=== PATIENT | male | born 1950 | race Caucasian/White ===

== ENCOUNTER 2019-04-30 00:46 | Emergency (ER) | payer OTHER, MEDICARE, MEDICAID, SELFPAY ==
[2019-04-30 00:51] VITALS: BP 173/100; PULSE 76; RESP 18; TEMP 37.1; O2SAT 95; BMI 21.9
--- NOTE | 2019-04-30 00:53 | ED_ITS ---
Entered by Lisa Garcias, acting as scribe for BashirCharlotte HPI - Abdominal Pain General: Chief Complaint: Abdominal Pain Stated Complaint: abd pain Time Seen by Provider: 04/30/19 00:53 Source: patient Mode of arrival: ambulatory Limitations: no limitations History of Present Illness: HPI narrative: 68 yo m came to the er for abd pain. Onset was last night. Pt states that he is having rt flank pain, pt said that he is not having any hematuria at this time. Pt states that this has happened before. d MD elicited complaint: abdominal pain Pertinent past history: none Onset (ago): day(s) (last night) Pain Consistency: constant Location: R flank Severity: mild Quality: sharp Radiation: none Migration to: no migration Exacerbating factors: nothing Relieving factors: nothing Associated Symptoms: Reports no associated symptoms Review of Systems General: Reports: other (negative unless marked) [facility] ED PFSH: Social History Smoking and tobacco status: current every day smoker Course Vital Signs: Vital signs: Vital Signs Temperature 98.8 F 04/30/19 00:51 Pulse Rate 70 04/30/19 03:07 Respiratory Rate 16 04/30/19 03:07 Blood Pressure 163/95 04/30/19 03:07 Pulse Oximetry 94 04/30/19 03:07 MDM - Abdominal Pain MDM Narrative: Medical decision making narrative: Edvin is a very nice 68-year-old male who comes in with right flank pain consistent with previous kidney stones. Renal CT shows a 2.1 x 1 6 mm stone in the right proximal ureter with mild obstruction. There is no sign of infection in his urine. He is not vomiting and is able to tolerate oral medications. I will go and discharge him home to follow-up with Dr. Naqvi he understands return for fever, uncontrolled pain or for any other symptoms. The patient will follow up with [facility] for definitive management. Lab Data: Attestation: I reviewed the patient's lab results. Labs: Lab Results 04/30/19 04/30/19 04/30/19 Range/Units 00:57 00:57 02:30 WBC 11.5 H (4.0-10.0) 10^3/ uL RBC 5.42 H (4.1-5.3) 10^6/u L Hgb 16.7 H (11.7-16.6) g/dL Hct 50.3 (42.0-52.0) % MCV 92.8 (80-94) fL MCH 30.8 (28.0-34.0) pg MCHC 33.2 (30.0-36.0) g/dL RDW 13.9 (12.1-15.1) % Plt Count 179 (130-400) 10^3/c mm MPV 11.2 H (7.4-10.4) fL Neut % (Auto) 83.4 % Lymph % (Auto) 11.5 % [place] % (Auto) 4.2 % Eos % (Auto) 0.3 % Baso % (Auto) 0.3 % Neut # (Auto) 9.6 H (1.8-7.7) 10^3/u L Lymph # (Auto) 1.3 (0.8-4.8) 10^3/u L [place] # (Auto) 0.5 (0.2-0.9) 10^3/u L Eos # (Auto) 0.0 (0.0-0.8) 10^3/u L Baso # (Auto) 0.0 (0.0-0.1) 10^3/u L Nucleated RBC % (a uto) 0 % Nucleated RBCs # 0.0 /100WBC Sodium 140 (136-145) mmol/L Potassium 3.9 (3.5-5.1) mmol/L Chloride 100 (98-107) mmol/L Carbon Dioxide 23 (22-29) mmol/L Anion Gap 20.9 H (5-19) BUN 18 (8-23) mg/dL Creatinine 1.2 (0.7-1.2) mg/dL GFR Calculation 60.6 L (90-130) mL/min Glucose 159 H (65-115) mg/dL Calcium 9.7 (8.5-10.5) mg/dL Magnesium 2.1 (1.7-2.3) mg/dL Total Bilirubin 1.0 (0.15-1.2) mg/dL AST 17 (0-40) U/L ALT 12 (0-41) U/L Alkaline Phosphata se 88 (40-130) IU/L Total Protein 7.6 (6.6-8.7) g/dL Albumin 4.6 (3.5-5.2) g/dL Globulin 3.0 (1.3-4.6) g/dL Lipase 155 H (13-60) U/L Urine Color Yellow (Yellow) Urine Appearance Hazy A (CLEAR) Urine pH 5 (5-7) Ur Specific Gravit y 1.030 (1.005-1.030) Urine Protein Neg (Negative) Urine Glucose (UA) Norm (Normal) Urine Ketones 1+ H (Negative) Urine Blood 3+ H (Negative) Urine Nitrate Negative (Negative) Urine Bilirubin 1+ H (NEGATIVE) Urine Urobilinogen 1 H (Negative) mg/dL Ur Leukocyte Henny ase Negative (Negative) Urine RBC 5-10 H (0-2) /hpf Urine WBC None (0-5) /hpf Ur Squamous Epith Cells 0-4 H (0-5) Calcium Oxalate Cr ystal 10-15 H /hpf Urine Bacteria 1+ H (NONE) Urine Mucus 3+ Imaging Data ^: CT Abd/Pel: Radiologist's impression: [place] [address] CT Scan Report Signed Patient: Edvin Echeverria Unit #: [id number] : 1950 Age/Sex: 68 / M ADM Date: 04/30/19 Loc: ER Room/Bed: Attending Dr: Ordering Provider/Ordering MD: Charlotte Camejo DO Date of Service: 04/30/19 Procedure(s): CT kidney stone 29685 Accession Number(s): [id number] Report Number: [id number] PROCEDURE INFORMATION: Exam: CT Abdomen And Pelvis Without Contrast Exam date and time: 04/30/2019 12:57 AM Age: 68 years old Clinical indication: Abdominal pain; Flank; Right; Patient HX: HX prior renal stones; Additional info: Flank/abdominal pain TECHNIQUE: Imaging protocol: Computed tomography of the abdomen and pelvis without contrast. Total DLP: 597.1 mGy-cm Radiation optimization: All CT scans at this facility use at least one of these dose optimization techniques: automated exposure control; mA and/or kV adjustment per patient size (includes targeted exams where dose is matched to clinical indication); or iterative reconstruction. COMPARISON: No relevant prior studies available. FINDINGS: Lungs: Minimal stranding in the left lung base. Liver: Unremarkable liver. Gallbladder and bile ducts: No calcified stones. No ductal dilation. Pancreas: No obvious pancreatic disease. Spleen: No splenomegaly. Adrenals: No mass. Kidneys and ureters: Very small stone in the right kidney. Several homogeneous water density masses in the kidneys, the largest measuring 4.5 cm in greatest diameter arising from the anterior lower left kidney; minimal calcification in the margin or dependent lumen of some of these masses. Several high density small masses also evident within the kidneys. Mild right hydronephrosis, stranding in the right perirenal fat and mild to moderate proximal right hydroureter; termination of the right ureteral dilatation in the area of the 2.1 x 1.6 mm proximal right ureteral stone. No left hydronephrosis. Stomach and bowel: Moderate sigmoid and mild to moderate descending colonic diverticulosis. Several transverse and right colonic diverticula, also. No obstruction. Appendix: Normal appendix. Intraperitoneal space: No free air. Vasculature: Atherosclerosis. Mild ectasia of the distal abdominal aorta and the right common iliac artery. No focal aortic aneurysm. Lymph nodes: No apparent enlarged nodes. Bladder: Unremarkable as visualized. Reproductive: Mild prostatic prominence. Bones/joints: Degeneration of several discs. No acute fracture. Soft tissues: Slight direct and indirect left inguinal hernias containing fat. Developing right inguinal hernia. CT/CT kidney stone [id number] IMPRESSION: 1. 2.1 x 1.6 mm stone in the proximal right ureter causing mild obstruction. Very small right renal stone. Multiple renal masses suggestive of low density and high density cysts; minimal marginal or dependent luminal calcification in some of the low-density masses. 2. Mild ectasia of the distal abdominal aorta and the right common iliac artery. Colonic diverticulosis and other findings detailed above. Radiation Dose CTDIVOL = (mGy): DLP = 597.1 (mGy-cm) Dictated By: Catalina Ho MD Signed By: Catalina Ho MD Signed Date/Time: 04/30/19248 DD/ 7 Discharge Plan Discharge Patient Disposition: Home, Self-Care Clinical Impression: Right ureteral calculus Condition: Stable Prescriptions: New Macrobid 100 mg capsule 100 mg PO BID 7 Days Qty: 14 RF: 0 [place] 5-325 mg tablet 1 tab PO Q6H PRN (Reason: pain) 5 Days Qty: 20 RF: 0 Zofran 4 mg tablet 4 mg PO Q6H PRN (Reason: nausea and vomiting) Qty: 20 RF: 0 Discharge Orders: Discharge Order (Routine); Ordered 04/30/19 Ordered By: Charlotte Camejo Referrals: Adrien Naqvi MD [Physician] - 1-3 days Krunal Painter, [Primary Care Provider] - Discharge Diet: Advance as tolerated Discharge Activity: Increase activity as tolerated Patient Instructions: Kidney Stones (ED), Renal Colic (ED), How to Strain Your Urine (ED) Activity Restrictions/Additional Instructions: Please return to the ER immediately for any of the signs or symptoms listed on your discharge instruction sheets, worsening/changing of your symptoms, you are not getting better as quickly as expected, or for ANY other cause or concerns. Discharge Date/Time: 04/30/19 03:08 Coding Level of Care Code ED Political Geographer for g Fwd The documentation recorded by the Dieter choudhury Stephanie Lyn, accurately reflects the service I personally performed and the decisions made by Bashir ivory Eli N Apr 30, 2019 00:46
--- NOTE | 2019-04-30 00:56 | CTR_ITS ---
PROCEDURE INFORMATION: Exam: CT Abdomen And Pelvis Without Contrast Exam date and time: 04/30/2019 12:57 AM Age: 68 years old Clinical indication: Abdominal pain; Flank; Right; Patient HX: HX prior renal stones; Additional info: Flank/abdominal pain TECHNIQUE: Imaging protocol: Computed tomography of the abdomen and pelvis without contrast. Total DLP: 597.1 mGy-cm Radiation optimization: All CT scans at this facility use at least one of these dose optimization techniques: automated exposure control; mA and/or kV adjustment per patient size (includes targeted exams where dose is matched to clinical indication); or iterative reconstruction. COMPARISON: No relevant prior studies available. FINDINGS: Lungs: Minimal stranding in the left lung base. Liver: Unremarkable liver. Gallbladder and bile ducts: No calcified stones. No ductal dilation. Pancreas: No obvious pancreatic disease. Spleen: No splenomegaly. Adrenals: No mass. Kidneys and ureters: Very small stone in the right kidney. Several homogeneous water density masses in the kidneys, the largest measuring 4.5 cm in greatest diameter arising from the anterior lower left kidney; minimal calcification in the margin or dependent lumen of some of these masses. Several high density small masses also evident within the kidneys. Mild right hydronephrosis, stranding in the right perirenal fat and mild to moderate proximal right hydroureter; termination of the right ureteral dilatation in the area of the 2.1 x 1.6 mm proximal right ureteral stone. No left hydronephrosis. Stomach and bowel: Moderate sigmoid and mild to moderate descending colonic diverticulosis. Several transverse and right colonic diverticula, also. No obstruction. Appendix: Normal appendix. Intraperitoneal space: No free air. Vasculature: Atherosclerosis. Mild ectasia of the distal abdominal aorta and the right common iliac artery. No focal aortic aneurysm. Lymph nodes: No apparent enlarged nodes. Bladder: Unremarkable as visualized. Reproductive: Mild prostatic prominence. Bones/joints: Degeneration of several discs. No acute fracture. Soft tissues: Slight direct and indirect left inguinal hernias containing fat. Developing right inguinal hernia. CT/CT kidney stone [id number] IMPRESSION: 1. 2.1 x 1.6 mm stone in the proximal right ureter causing mild obstruction. Very small right renal stone. Multiple renal masses suggestive of low density and high density cysts; minimal marginal or dependent luminal calcification in some of the low-density masses. 2. Mild ectasia of the distal abdominal aorta and the right common iliac artery. Colonic diverticulosis and other findings detailed above. Radiation Dose CTDIVOL = (mGy): DLP = 597.1 (mGy-cm)
[2019-04-30 01:04] LABS: Basophils % 0.3 %; Eosinophils % 0.3 %; Hematocrit 50.3 % (42.0-52.0); Hemoglobin 16.7 g/dL (11.7-16.6); Lymphocytes # 1.3 10^3/uL (0.8-4.8); Lymphocytes % 11.5 %; Mean Corpuscular HGB Conc 33.2 g/dL (30.0-36.0); Mean Corpuscular Hemoglobin 30.8 pg (28.0-34.0); Mean Corpuscular Volume 92.8 fL (80-94); Mean Platelet Volume 11.2 fL (7.4-10.4); Monocytes # 0.5 10^3/uL (0.2-0.9); Monocytes % 4.2 %; Neutrophils # 9.6 10^3/uL (1.8-7.7); Neutrophils % 83.4 %; Nucleated Red Blood Cells % 0 %; Platelet Count 179 10^3/cmm (130-400); Red Blood Count 5.42 10^6/uL (4.1-5.3); Red Cell Distribution Width 13.9 % (12.1-15.1); White Blood Count 11.5 10^3/uL (4.0-10.0)
[2019-04-30 01:06] VITALS: RESP 16
[2019-04-30] MEDS: morphine 4 mg/mL SDV 1 mL IVP (01:06)
[2019-04-30] MEDS: ondansetron 2 mg/ML SDV 2 mL 4 MG IVP (01:06)
[2019-04-30] MEDS: sodium chloride 0.9% 1,000 ML 100 ML IV (01:08)
[2019-04-30] MEDS: sodium chloride 0.9% 1,000 ML 999 ML IV (01:09)
[2019-04-30 01:23] LABS: Alanine Aminotransferase 12 U/L (0-41); Albumin Level 4.6 g/dL (3.5-5.2); Alkaline Phosphatase 88 IU/L (40-130); Anion Gap 20.9 (5-19); Aspartate Amino Transferase 17 U/L (0-40); Blood Urea Nitrogen 18 mg/dL (8-23); Calcium 9.7 mg/dL (8.5-10.5); Carbon Dioxide 23 mmol/L (22-29); Chloride 100 mmol/L (98-107); Glomerular Filtration Rate 60.6 mL/min (90-130); Glucose 159 mg/dL (65-115); Lipase 155 U/L (13-60); Magnesium 2.1 mg/dL (1.7-2.3); Potassium 3.9 mmol/L (3.5-5.1); Sodium 140 mmol/L (136-145); Total Protein 7.6 g/dL (6.6-8.7)
[2019-04-30 02:43] LABS: Blood Urine 3+ (Negative); Glucose Urine UA Norm (Normal); Ketones Urine 1+ (Negative); Protein Urine Neg (Negative); Urine Appearance Hazy (CLEAR); Urine Color Yellow (Yellow); pH Urine 5 (5-7)
[2019-04-30 02:44] LABS: Bilirubin Urine 1+ (NEGATIVE); Leukocyte Esterase Urine Negative (Negative); Nitrate Urine Negative (Negative); Urobilinogen Urine 1 mg/dL (Negative)
[2019-04-30 02:52] LABS: Bacteria Urine 1+; Mucus Urine 3+; Squamous Epithelial Cell Urine 0-4 (0-5)
[2019-04-30 02:53] LABS: Add Urine Culture? No
[2019-04-30] MEDS: ketorolac 30 mg/mL INJ 10 MG IVP (03:03)
[2019-04-30] MEDS: nitrofurantoin SR (BID) 100 mg Capsule PO (03:03)
[2019-04-30 03:07] VITALS: BP 163/95; PULSE 70; RESP 16; O2SAT 94
--- NOTE | 2019-05-02 08:27 | DCPLANNER ---
senior safety support manager had message to schedule a follow up appointment for patient with Dr. Naqvi. senior safety support manager called the office of Dr. Naqvi, spoke with Guerline, gave clinic patients information. senior safety support manager was told that patients information would be printed and given to Jessica for review. Clinic will call patient with appointment information, vocational case manager will call for appointment information. Patient has [employer] [facility], vocational case manager called June with [facility] and informed her that patient is to follow up with Dr. Naqvi.
--- NOTE | 2019-05-06 13:54 | DCPLANNER ---
Patient had an appointment scheduled for 05.05.[address] Naqvi. Patient did attend the appointment.
== END 2019-04-30 03:08 | disposition home or self-care (01) ==
PROVIDERS: Emergency Provider Emergency Medicine; Family Provider Emergency Medicine Emergency Medical Services; PCP Emergency Medicine Emergency Medical Services
DX: N13.2 Hydronephrosis with renal and ureteral calculous obstruction (principal); F17.200 Nicotine dependence, unspecified, uncomplicated
CPT/HCPCS: 36415; 74176; 80053; 81001; 83690; 83735; 85025; 96360; 96361; 96374; 96375; 96376; 99283; A9270; J1885; J2270; J2405; J7030

== ENCOUNTER 2019-05-05 06:39 | Outpatient (CLI) | payer MEDICARE, MEDICAID, SELFPAY ==
--- NOTE | 2019-05-05 07:00 | XR_ITS ---
WS: [id number] XR KUB [id number] REASON FOR EXAM: RIGHT URETERAL CALCULUS FINDINGS: A calcified density is seen near the entrance into the right side of the bladder consistent with a stone. There are no definite calcifications in the region of the kidneys or proximal ureter. XR/XR KUB [id number] IMPRESSION: Suspect stone in the distal right ureter.
== END 2019-05-05 06:40 | disposition home or self-care (01) ==
PROVIDERS: Family Provider Emergency Medicine Emergency Medical Services; PCP Emergency Medicine Emergency Medical Services; Visit Provider Urology
DX: N20.1 Calculus of ureter (principal)
CPT/HCPCS: 74018; 81001

== ENCOUNTER 2021-10-04 08:24 | Inpatient (IN) | payer OTHER, MEDICARE, SELFPAY ==
[2021-10-04] VITALS (48 sets, daily range): BP systolic 112–154; BP diastolic 66–85; PULSE 86–99; RESP 12–41; TEMP 36.6–37.1; O2SAT 90–96; BMI 20.1
--- NOTE | 2021-10-04 08:48 | XRR_ITS ---
PROCEDURE INFORMATION: Exam: XR Chest Exam date and time: 10/04/2021 9:11 AM Age: 71 years old Clinical indication: Shortness of breath; Additional info: SOB, hypoxia TECHNIQUE: Imaging protocol: Radiologic exam of the chest. Views: 1 view. COMPARISON: CR XR KUB [id number] 05/05/2019 6:53 AM FINDINGS: Lungs: Trace ground-glass densities in the left lung base. Questionable nodularity in the right peripheral lung base. Pleural spaces: No pneumothorax. No pleural effusion. Heart/Mediastinum: The cardiomediastinal silhouette is within normal limits. Bones/joints: Fracture of the posterior left 7th rib. XR/XR chest 1V portable [id number] IMPRESSION: 1. Fracture of the posterior left 7th rib. 2. Trace ground-glass densities in the left lung base, may be consistent with mild pneumonia. 3. Questionable nodularity in the right peripheral lung base.
--- NOTE | 2021-10-04 08:49 | W.ED.SOB ---
Documented by User: OSCAR Hernandez 10/04/21 12:41 HPI - SOB/Dyspnea General: Chief Complaint: Shortness of Breath/Dyspnea Stated Complaint: sob Time Seen by Provider: 10/04/21 08:34 Source: patient Mode of arrival: ambulatory Limitations: no limitations History of Present Illness: HPI Narrative: Patient is a 71-year-old male who presents to ED today with a complaint of shortness of breath over the past 3 to 4 days. Patient states he is an every day smoker with probable undiagnosed COPD. He does use an albuterol inhaler as needed. Patient states that his shortness of breath seems to be worse with exertion and lying flat. He states he has had to sleep upright for the past several nights. He does have a productive cough. No fevers or chills. He does not complain of any chest pain. No lower leg swelling or calf pain. Of note he does report being a around a COVID-positive individual last week. Patient is unvaccinated for COVID. Patient was satting 85% on room air upon arrival to the ED. During my initial visit he is on 3L and satting at roughy 91-92%. MD elicited complaint: shortness of breath Onset (ago): day(s) Timing: constant Exacerbating factors: lying flat and exertion Relieving factors: upright position Associated symptoms: Reports abdominal pain, chest congestion and orthopnea; Deny chest pain, dizziness, extremity pain, fever(s), hemoptysis, lightheadedness, nausea, palpitations, syncope or vomiting Treatment prior to arrival: none Related Data: Home oxygen amount: none Review of Systems Const: Denies: fever(s), chills, body aches, fatigue or malaise Eyes: Denies: change in vision, blurry vision or photophobia ENMT: Denies: throat pain, odynophagia, nasal discharge, nasal congestion, post nasal drip or sinus pain Card: Reports: dyspnea on exertion and orthopnea; Denies: chest pain, palpitations, irregular heart rhythm, edema, swelling of feet/ankles, lightheadedness, syncope, pre-syncope, leg pain with exertion or acrocyanosis Resp: Reports: dyspnea, productive cough and chest congestion; Denies: wheezing, pain on inspiration or hemoptysis GI: Reports: abdominal pain; Denies: nausea, vomiting, heartburn or diarrhea : Denies: flank pain, difficulty urinating, dysuria or hematuria Musc: Denies: neck pain, back pain, extremity pain or joint pain Skin/Breast: Denies: rash Neuro: Denies: headache(s), numbness in extremities, weakness in extremities, sensory changes or dizziness [facility] ED PFSH: Medical History (Updated 10/04/21 @ 12:48 by Artem Yeung MD) Calcium renal calculus COPD (chronic obstructive pulmonary disease) Hyperlipidemia Ureterolithiasis Surgical History Status post laser lithotripsy of ureteral calculus Family History Father Cancer Brother CAD (coronary artery disease) Social History Smoking and tobacco status: current every day smoker Alcohol intake: never Adopted: No Caregiver/support person: No Lives independently: Yes Marital status: Current occupational status: retired History of recent travel: No Current gender identity: Male Physical Exam Const: COMMON NORMALS: no acute distress, patient oriented x3, no limitations and alert GENERAL APPEARANCE: cooperative ORIENTATION/CONSCIOUSNESS: Yes awake, Yes oriented to person, Yes oriented to place and Yes oriented to time HENMT: COMMON NORMALS: normocephalic and atraumatic HEAD & SCALP: normal to inspection, normocephalic and atraumatic Eye: GENERAL EYE: appearance normal, both eyes and all related structures Neck/C-Spine: COMMON NORMALS: full ROM, no lymphadenopathy, supple, no meningeal signs and no JVD Chest: COMMONS NORMALS: normal inspection of the chest and normal palpation of entire chest wall Resp: EFFORT & INSPECTION: Yes symmetric chest movement, No tachypneic and Yes respiratory distress (acute respiratory distress with hypoxia) AUSCULTATION: diminished lung sounds Cardio: COMMON NORMALS: no JVD and regular rate RATE: regular rate RHYTHM: abnormal rhythm regularly irregular GI: COMMON NORMALS: Normal to inspection, nondistended, normoactive bowel sounds present, Soft to palpation, No hepatosplenomegaly present and no masses INSPECTION: Yes normal to inspection AUSCULTATION: Yes normoactive bowel sounds PALPATION: Yes Soft to palpation, Yes Tenderness to palpation present (GI) (slight tenderness throughout abdomen-non surgical), No Guarding due to palpation present (GI), No Rigid due to palpation and Yes No hepatosplenomegaly present : COMMON NORMALS: Yes no CVA tenderness BLADDER/KIDNEY EXAM: Yes no CVA tenderness Back/Pelvis: COMMON NORMALS: no CVA tenderness, thoracic and lumbar spine normal to inspection, no thoracic nor lumbar tenderness and thoraco-lumbar ROM normal Extremity: COMMON NORMALS: normal to inspection GENERAL: Yes normal exam except as noted Neuro: GHISLAINE COMA SCALE: document GCS findings [place] coma scale eye opening: Spontaneous [place] coma scale verbal response: Orientated [place] coma scale motor response: Obey commands [place] coma scale total score: 15 COMMON NORMALS: patient oriented x3, moves all extremities, no focal motor deficits, no sensory deficits noted and gait normal SENSORIUM/ORIENTATION: Yes alert, Yes oriented to person, Yes oriented to place and Yes oriented to time MENINGEAL SIGNS: Yes no meningeal signs Skin: COMMON NORMALS: no rashes or lesions noted GENERAL SKIN EXAM: no rashes or lesions noted Course Vital Signs: Vital signs: Vital Signs Temperature 97.6 F 10/05/21 08:00 Pulse Rate 91 10/05/21 08:13 Respiratory Rate 16 10/05/21 08:00 Blood Pressure 114/71 10/05/21 08:00 Pulse Oximetry 91 10/05/21 08:00 Oxygen Delivery Me thod 10/05/21 08:00 Oxygen Flow Rate 2 10/05/21 08:00 MDM - SOB/Dyspnea Medical Decision Making Patient is a 71-year-old male here with complaints of shortness of breath over the past 3 to 4 days. He was hypoxic upon arrival satting 85% on room air. He is currently on 3.5L O2 and satting at 94%. He does have positive COVID exposure. Coronavirus PCR is pending. Possibility for COPD exacerbation. CXR showing ground glass densities in his left lung base raising the suspicion for COVID. Radiologist noted on a fracture of his seventh rib. No known history of recent injury or trauma. Patient will require hospitalization for acute respiratory distress with hypoxia/COPD exacerbation/rule out COVID. Lab Data : 10/05/21 05:20 10/05/21 05:20 Labs/Radiology: Radiology Impressions Chest X-Ray 10/04/21 08:48 IMPRESSION: 1. Fracture of the posterior left 7th rib. 2. Trace ground-glass densities in the left lung base, may be consistent with mild pneumonia. 3. Questionable nodularity in the right peripheral lung base. Laboratory Results WBC 7.2 10^3/uL (4.0-10.0) 10/04/21 09:00 RBC 4.43 10^6/uL (4.1-5.3) 10/04/21 09:00 Hgb 13.7 g/dL (11.7-16.6) 10/04/21 09:00 Hct 40.8 % (42.0-52.0) L 10/04/21 09:00 MCV 92.1 fl (80-94) 10/04/21 09:00 MCH 30.9 pg (28.0-34.0) 10/04/21 09:00 MCHC 33.6 g/dL (30.0-36.0) 10/04/21 09:00 RDW 13.4 % (12.1-15.1) 10/04/21 09:00 Plt Count 147 10^3/cmm (130-400) 10/04/21 09:00 MPV 11.7 fL (7.4-10.4) H 10/04/21 09:00 Neut % (Auto) 79.6 % 10/04/21 09:00 Lymph % (Auto) 10.6 % 10/04/21 09:00 [place] % (Auto) 9.1 % 10/04/21 09:00 Eos % (Auto) 0.0 % 10/04/21 09:00 Baso % (Auto) 0.3 % 10/04/21 09:00 Neut # (Auto) 5.72 10^3/uL (1.8-7.7) 10/04/21 09:00 Lymph # (Auto) 0.8 10^3/uL (0.8-4.8) 10/04/21 09:00 [place] # (Auto) 0.7 10^3/uL (0.2-0.9) 10/04/21 09:00 Eos # (Auto) 0.0 10^3/uL (0.0-0.8) 10/04/21 09:00 Baso # (Auto) 0.0 10^3/uL (0.0-0.1) 10/04/21 09:00 Nucleated RBC % (auto) 0 % 10/04/21 09:00 Nucleated RBCs # 0.0 /100WBC 10/04/21 09:00 D-Dimer 0.85 ug/mIFEU (0-0.59) H 10/04/21 09:00 Specimen Type Arterial 10/04/21 09:38 Sample Site Radial, right 10/04/21 09:38 ABG pH 7.43 (7.35-7.45) 10/04/21 09:38 ABG pCO2 44.6 mmHg (35-45) 10/04/21 09:38 ABG pO2 64.1 mmHg (80.0-100.0) L 10/04/21 09:38 ABG HCO3 29.6 mmol/L (22-26) H 10/04/21 09:38 ABG O2 Saturation 93.0 10/04/21 09:38 ABG Base Excess 4.5 mmol/L (-2.0-2.0) H 10/04/21 09:38 Filiberto Test Pos 10/04/21 09:38 A-a O2 Gradient 16.0 mmHg (5-10) H 10/04/21 09:38 Hematocrit 42.6 % (42-52) 10/04/21 09:38 Hgb O2 Saturation 91.3 % (95-100) L 10/04/21 09:38 Carboxyhemoglobin 1.5 %THgb (0.4-20.1) 10/04/21 09:38 Methemoglobin 0.4 % (0.4-1.5) 10/04/21 09:38 Total Hemoglobin 13.9 g/dL (14-18) L 10/04/21 09:38 Sodium 137.0 mmol/L (131-143) 10/04/21 09:38 Potassium 3.2 mmol/L (3.5-5.0) L 10/04/21 09:38 Glucose 115.0 mg/dL (70-115) 10/04/21 09:38 Ionized Calcium 1.1 mmol/L (1.1-1.4) 10/04/21 09:38 O2 Delivery Device Nc 10/04/21 09:38 O2 Liters/Min 3.5 % 10/04/21 09:38 FiO2 34.0 % 10/04/21 09:38 Paginator ID Uziel 10/04/21 09:38 Sodium 137 mmol/L (136-145) 10/04/21 09:00 Potassium 3.7 mmol/L (3.5-5.1) 10/04/21 09:00 Chloride 98 mmol/L (98-107) 10/04/21 09:00 Carbon Dioxide 28 mmol/L (22-29) 10/04/21 09:00 Anion Gap 14.7 (5-19) 10/04/21 09:00 BUN 9 mg/dL (8-23) 10/04/21 09:00 Creatinine 0.6 mg/dL (0.7-1.2) L 10/04/21 09:00 GFR Calculation 133.6 mL/min (90-130) H 10/04/21 09:00 Glucose 114 mg/dL (65-115) 10/04/21 09:00 Calculated Osmolality 284 mOsm/kg (285-295) L 10/04/21 09:00 Calcium 8.6 mg/dL (8.5-10.5) 10/04/21 09:00 Total Bilirubin 1.7 mg/dL (0.15-1.2) H 10/04/21 09:00 AST 21 U/L (0-40) 10/04/21 09:00 ALT 10 U/L (0-41) 10/04/21 09:00 Alkaline Phosphatase 50 IU/L (40-130) 10/04/21 09:00 Troponin T Baseline 9 ng/L (0-15) 10/04/21 09:00 Troponin T 120 Minute 8.46 ng/L (0-15) 10/04/21 10:39 Delta Troponin T -0.54 ABS# (0-10) L 10/04/21 10:39 C-Reactive Protein 50.2 mg/L (0.0-4.9) H 10/04/21 09:00 NT-Pro-B Natriuret Pep 131 pg/mL (0-125) H 10/04/21 09:00 NT-Pro-B Natriuret Pep 133 pg/mL (0-125) H 10/04/21 09:00 Total Protein 6.2 g/dL (6.6-8.7) L 10/04/21 09:00 Albumin 3.2 g/dL (3.5-5.2) L 10/04/21 09:00 Globulin 3.0 g/dL (1.3-4.6) 10/04/21 09:00 Procalcitonin 0.04 ng/mL (0-0.5) 10/04/21 09:00 Urine Color Yellow (Yellow) 10/04/21 12:41 Urine Appearance Clear (CLEAR) 10/04/21 12:41 Urine pH 5 (5-7) 10/04/21 12:41 Ur Specific [place] 1.010 (1.005-1.030) 10/04/21 12:41 Urine Protein Neg (Negative) 10/04/21 12:41 Urine Glucose (UA) Norm (Normal) 10/04/21 12:41 Urine Ketones 2+ (Negative) H 10/04/21 12:41 Urine Blood Trace (Negative) H 10/04/21 12:41 Urine Nitrate Negative (Negative) 10/04/21 12:41 Urine Bilirubin Neg (Negative) 10/04/21 12:41 Urine Urobilinogen 4 mg/dL (Negative) H 10/04/21 12:41 Ur Leukocyte Esterase Negative (Negative) 10/04/21 12:41 Urine RBC 0-4 /hpf (0-2) H 10/04/21 12:41 Urine WBC 0-4 /hpf (0-5) H 10/04/21 12:41 Ur Squamous Epith Cells 0-4 /hpf (0-5) H 10/04/21 12:41 Amorphous Sediment Not Reportable 10/04/21 12:41 Urine Bacteria Trace /hpf (NONE) 10/04/21 12:41 Urine Mucus 1+ /hpf 10/04/21 12:41 Coronavirus 229E (PCR) Not detected (NOT DETECT) 10/04/21 09:23 SARS-CoV-2 (PCR) Detected (NOT DETECT) A 10/04/21 09:23 Discharge Plan Discharge Patient Disposition: Admitted As Inpatient Admit Provider: Artem Yeung Clinical Impression: Acute respiratory distress, COVID-19 Condition: Stable Sign Out Sign Out Data: Patient Sign Out occurred on 10/04/21 at 11:01. Patient's care was discussed, and care was transferred from to Castro Saba DO. Coding Level of Care Code ED Slp Teacher for Chg Fwd Exam Comprehensive Documented by User: Castro Saba DO 10/05/21 09:30 HPI - SOB/Dyspnea General: Chief Complaint: Shortness of Breath/Dyspnea Stated Complaint: sob Time Seen by Provider: 10/04/21 08:34 PFSH ED PFSH: Medical History (Updated 10/04/21 @ 12:48 by Artem Yeung MD) Calcium renal calculus COPD (chronic obstructive pulmonary disease) Hyperlipidemia Ureterolithiasis Surgical History Status post laser lithotripsy of ureteral calculus Family History Father Cancer Brother CAD (coronary artery disease) Social History Smoking and tobacco status: current every day smoker Alcohol intake: never Adopted: No Caregiver/support person: No Lives independently: Yes Marital status: Current occupational status: retired History of recent travel: No Current gender identity: Male Physical Exam Neuro: GHISLAINE COMA SCALE: document GCS findings [place] coma scale total score: 15 Course Vital Signs: Vital signs: Vital Signs Temperature 97.6 F 10/05/21 08:00 Pulse Rate 91 10/05/21 08:13 Respiratory Rate 16 10/05/21 08:00 Blood Pressure 114/71 10/05/21 08:00 Pulse Oximetry 91 10/05/21 08:00 Oxygen Delivery Me thod 10/05/21 08:00 Oxygen Flow Rate 2 10/05/21 08:00 MDM - SOB/Dyspnea Medical Decision Making Patient is a 71-year-old male here with complaints of shortness of breath over the past 3 to 4 days. He was hypoxic upon arrival satting 85% on room air. He is currently on 3.5L O2 and satting at 94%. He does have positive COVID exposure. Coronavirus PCR is pending. Possibility for COPD exacerbation. CXR showing ground glass densities in his left lung base raising the suspicion for COVID. Radiologist noted on a fracture of his seventh rib. No known history of recent injury or trauma. Patient will require hospitalization for acute respiratory distress with hypoxia/COPD exacerbation/rule out COVID. Patient seen and evaluated. Agree with documentation by Arabella Mehta as per history and exam my findings were same. Patient will require hospital admission discussed the hospitalist orders have been written. Lab Data : 10/05/21 05:20 10/05/21 05:20 Labs/Radiology: Radiology Impressions Chest X-Ray 10/04/21 08:48 IMPRESSION: 1. Fracture of the posterior left 7th rib. 2. Trace ground-glass densities in the left lung base, may be consistent with mild pneumonia. 3. Questionable nodularity in the right peripheral lung base. Laboratory Results WBC 7.2 10^3/uL (4.0-10.0) 10/04/21 09:00 RBC 4.43 10^6/uL (4.1-5.3) 10/04/21 09:00 Hgb 13.7 g/dL (11.7-16.6) 10/04/21 09:00 Hct 40.8 % (42.0-52.0) L 10/04/21 09:00 MCV 92.1 fl (80-94) 10/04/21 09:00 MCH 30.9 pg (28.0-34.0) 10/04/21 09:00 MCHC 33.6 g/dL (30.0-36.0) 10/04/21 09:00 RDW 13.4 % (12.1-15.1) 10/04/21 09:00 Plt Count 147 10^3/cmm (130-400) 10/04/21 09:00 MPV 11.7 fL (7.4-10.4) H 10/04/21 09:00 Neut % (Auto) 79.6 % 10/04/21 09:00 Lymph % (Auto) 10.6 % 10/04/21 09:00 [place] % (Auto) 9.1 % 10/04/21 09:00 Eos % (Auto) 0.0 % 10/04/21 09:00 Baso % (Auto) 0.3 % 08/02/22 09:00 Neut # (Auto) 5.72 10^3/uL (1.8-7.7) 10/04/21 09:00 Lymph # (Auto) 0.8 10^3/uL (0.8-4.8) 10/04/21 09:00 [place] # (Auto) 0.7 10^3/uL (0.2-0.9) 10/04/21 09:00 Eos # (Auto) 0.0 10^3/uL (0.0-0.8) 10/04/21 09:00 Baso # (Auto) 0.0 10^3/uL (0.0-0.1) 10/04/21 09:00 Nucleated RBC % (auto) 0 % 10/04/21 09:00 Nucleated RBCs # 0.0 /100WBC 10/04/21 09:00 D-Dimer 0.85 ug/mIFEU (0-0.59) H 10/04/21 09:00 Specimen Type Arterial 10/04/21 09:38 Sample Site Radial, right 10/04/21 09:38 ABG pH 7.43 (7.35-7.45) 10/04/21 09:38 ABG pCO2 44.6 mmHg (35-45) 10/04/21 09:38 ABG pO2 64.1 mmHg (80.0-100.0) L 10/04/21 09:38 ABG HCO3 29.6 mmol/L (22-26) H 10/04/21 09:38 ABG O2 Saturation 93.0 10/04/21 09:38 ABG Base Excess 4.5 mmol/L (-2.0-2.0) H 10/04/21 09:38 Filiberto Test Pos 10/04/21 09:38 A-a O2 Gradient 16.0 mmHg (5-10) H 10/04/21 09:38 Hematocrit 42.6 % (42-52) 10/04/21 09:38 Hgb O2 Saturation 91.3 % (95-100) L 10/04/21 09:38 Carboxyhemoglobin 1.5 %THgb (0.4-20.1) 10/04/21 09:38 Methemoglobin 0.4 % (0.4-1.5) 10/04/21 09:38 Total Hemoglobin 13.9 g/dL (14-18) L 10/04/21 09:38 Sodium 137.0 mmol/L (131-143) 10/04/21 09:38 Potassium 3.2 mmol/L (3.5-5.0) L 10/04/21 09:38 Glucose 115.0 mg/dL (70-115) 10/04/21 09:38 Ionized Calcium 1.1 mmol/L (1.1-1.4) 10/04/21 09:38 O2 Delivery Device Nc 10/04/21 09:38 O2 Liters/Min 3.5 % 10/04/21 09:38 FiO2 34.0 % 10/04/21 09:38 Paginator ID [place] 10/04/21 09:38 Sodium 137 mmol/L (136-145) 10/04/21 09:00 Potassium 3.7 mmol/L (3.5-5.1) 10/04/21 09:00 Chloride 98 mmol/L (98-107) 10/04/21 09:00 Carbon Dioxide 28 mmol/L (22-29) 10/04/21 09:00 Anion Gap 14.7 (5-19) 10/04/21 09:00 BUN 9 mg/dL (8-23) 10/04/21 09:00 Creatinine 0.6 mg/dL (0.7-1.2) L 10/04/21 09:00 GFR Calculation 133.6 mL/min (90-130) H 10/04/21 09:00 Glucose 114 mg/dL (65-115) 10/04/21 09:00 Calculated Osmolality 284 mOsm/kg (285-295) L 10/04/21 09:00 Calcium 8.6 mg/dL (8.5-10.5) 10/04/21 09:00 Total Bilirubin 1.7 mg/dL (0.15-1.2) H 10/04/21 09:00 AST 21 U/L (0-40) 10/04/21 09:00 ALT 10 U/L (0-41) 10/04/21 09:00 Alkaline Phosphatase 50 IU/L (40-130) 10/04/21 09:00 Troponin T Baseline 9 ng/L (0-15) 10/04/21 09:00 Troponin T 120 Minute 8.46 ng/L (0-15) 10/04/21 10:39 Delta Troponin T -0.54 ABS# (0-10) L 10/04/21 10:39 C-Reactive Protein 50.2 mg/L (0.0-4.9) H 10/04/21 09:00 NT-Pro-B Natriuret Pep 131 pg/mL (0-125) H 10/04/21 09:00 NT-Pro-B Natriuret Pep 133 pg/mL (0-125) H 10/04/21 09:00 Total Protein 6.2 g/dL (6.6-8.7) L 10/04/21 09:00 Albumin 3.2 g/dL (3.5-5.2) L 10/04/21 09:00 Globulin 3.0 g/dL (1.3-4.6) 10/04/21 09:00 Procalcitonin 0.04 ng/mL (0-0.5) 10/04/21 09:00 Urine Color Yellow (Yellow) 10/04/21 12:41 Urine Appearance Clear (CLEAR) 10/04/21 12:41 Urine pH 5 (5-7) 10/04/21 12:41 Ur Specific [place] 1.010 (1.005-1.030) 10/04/21 12:41 Urine Protein Neg (Negative) 10/04/21 12:41 Urine Glucose (UA) Norm (Normal) 10/04/21 12:41 Urine Ketones 2+ (Negative) H 10/04/21 12:41 Urine Blood Trace (Negative) H 10/04/21 12:41 Urine Nitrate Negative (Negative) 10/04/21 12:41 Urine Bilirubin Neg (Negative) 10/04/21 12:41 Urine Urobilinogen 4 mg/dL (Negative) H 10/04/21 12:41 Ur Leukocyte Esterase Negative (Negative) 10/04/21 12:41 Urine RBC 0-4 /hpf (0-2) H 10/04/21 12:41 Urine WBC 0-4 /hpf (0-5) H 10/04/21 12:41 Ur Squamous Epith Cells 0-4 /hpf (0-5) H 10/04/21 12:41 Amorphous Sediment Not Reportable 10/04/21 12:41 Urine Bacteria Trace /hpf (NONE) 10/04/21 12:41 Urine Mucus 1+ /hpf 10/04/21 12:41 Coronavirus 229E (PCR) Not detected (NOT DETECT) 10/04/21 09:23 SARS-CoV-2 (PCR) Detected (NOT DETECT) A 10/04/21 09:23 Discharge Plan Discharge Patient Disposition: Admitted As Inpatient Admit Provider: Artem Yeung Clinical Impression: Acute respiratory distress, COVID-19 Condition: Stable Sign Out Sign Out Data: Patient Sign Out occurred on 10/04/21 at 11:01. Patient's care was discussed, and care was transferred from to Castro Saba DO. Coding Level of Care Code ED Slp Teacher for Chg Fwd Exam Comprehensive
--- NOTE | 2021-10-04 08:55 | ECG_ITS ---
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 Measurements Intervals [place] Rate: 95 P: 60 DE: 118 QRS: 71 QRSD: 83 T: 64 QT: 347 QTc: 437 Interpretive Statements SINUS RHYTHM WITH MARKED SINUS ARRHYTHMIA WITH SHORT DE INTERVAL No previous ECG available for comparison Electronically Signed On 10-04-2021 21:10:00 CDT by Albaro Fine M.D. [id number]
[2021-10-04 09:19] LABS: Basophils % 0.3 %; Hematocrit 40.8 % (42.0-52.0); Hemoglobin 13.7 g/dL (11.7-16.6); Lymphocytes # 0.8 10^3/uL (0.8-4.8); Lymphocytes % 10.6 %; Mean Corpuscular HGB Conc 33.6 g/dL (30.0-36.0); Mean Corpuscular Hemoglobin 30.9 pg (28.0-34.0); Mean Corpuscular Volume 92.1 fl (80-94); Mean Platelet Volume 11.7 fL (7.4-10.4); Monocytes # 0.7 10^3/uL (0.2-0.9); Monocytes % 9.1 %; Neutrophils # 5.72 10^3/uL (1.8-7.7); Neutrophils % 79.6 %; Nucleated Red Blood Cells % 0 %; Platelet Count 147 10^3/cmm (130-400); Red Blood Count 4.43 10^6/uL (4.1-5.3); Red Cell Distribution Width 13.4 % (12.1-15.1); White Blood Count 7.2 10^3/uL (4.0-10.0)
[2021-10-04 09:44] LABS: Troponin(5th) Baseline 9 ng/L (0-15)
[2021-10-04 09:50] LABS: NT Pro B Type Natriuretic Pept 133 pg/mL (0-125); Procalcitonin 0.04 ng/mL (0-0.5)
[2021-10-04 09:50] LABS: ABG PCO2 44.6 mmHg (35-45); ABG PH Result 7.43 (7.35-7.45); Arterial Blood Gas Hematocrit 42.6 % (42-52); Base Excess ABG 4.5 mmol/L (-2.0-2.0); Blood Gas Allen Test Pos; Blood Gas Sample Type Arterial; Carboxyhemoglobin 1.5 %THgb (0.4-20.1); HCO3 ABG 29.6 mmol/L (22-26); HGB O2 Sat 91.3 % (95-100); Ionized Calcium Level - ABG 1.1 mmol/L (1.1-1.4); Methemoglobin 0.4 % (0.4-1.5); PO2 ABG 64.1 mmHg (80.0-100.0); Potassium Level - ABG 3.2 mmol/L (3.5-5.0); Total Hemoglobin 13.9 g/dL (14-18)
[2021-10-04 09:51] LABS: Blood Gas LPM 3.5 %; Blood Gas Operator Identificat MONRO; Blood Gas Sample Site Radial, right; Oxygen Device NC
[2021-10-04 10:01] LABS: Alanine Aminotransferase 10 U/L (0-41); Albumin Level 3.2 g/dL (3.5-5.2); Alkaline Phosphatase 50 IU/L (40-130); Anion Gap 14.7 (5-19); Aspartate Amino Transferase 21 U/L (0-40); Blood Urea Nitrogen 9 mg/dL (8-23); Calcium 8.6 mg/dL (8.5-10.5); Carbon Dioxide 28 mmol/L (22-29); Chloride 98 mmol/L (98-107); Glomerular Filtration Rate 133.6 mL/min (90-130); Glucose 114 mg/dL (65-115); Osmolality Calculated 284 mOsm/kg (285-295); Potassium 3.7 mmol/L (3.5-5.1); Sodium 137 mmol/L (136-145); Total Bilirubin 1.7 mg/dL (0.15-1.2); Total Protein 6.2 g/dL (6.6-8.7)
[2021-10-04] MEDS: levalbuterol 0.63 mg/3 mL Neb INHALATION (10:41)
--- NOTE | 2021-10-04 10:46 | ECG_ITS ---
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 Measurements Intervals [place] Rate: 87 P: 79 KS: 135 QRS: 67 QRSD: 81 T: 68 QT: 345 QTc: 416 Interpretive Statements SINUS RHYTHM Compared to ECG 10/04/2021 08:55:17 Sinus arrhythmia no longer present Short [place] interval no longer present Electronically Signed On 10-05-2021 6:43:51 CDT by Albaro Fine M.D. [id number]
[2021-10-04] MEDS: dexamethasone 10 mg/mL INJ 6 MG IVP (10:49)
[2021-10-04 11:07] LABS: Troponin 5 2HR 8.46 ng/L (0-15)
[2021-10-04 11:16] LABS: D Dimer 0.85 ug/mIFEU (0-0.59)
[2021-10-04 11:31] LABS: Adenovirus Not Detected (NOT DETECT); Chlamydia Pneumoniae Not Detected (NOT DETECT); Coronavirus 229E,HKU1,NL63,OC4 Not Detected (NOT DETECT); Human Metapneumovirus Not Detected (NOT DETECT); Human Rhinovirus/Enterovirus Not Detected (NOT DETECT); Influenza A Not Detected (NOT DETECT); Influenza A H1 Not Detected (NOT DETECT); Influenza A H1-2009 Not Detected (NOT DETECT); Influenza A H3 Not Detected (NOT DETECT); Influenza B Not Detected (NOT DETECT); Mycoplasma Pneumoniae Not Detected (NOT DETECT); Parainfluenza Virus Type 1 Not Detected (NOT DETECT); Parainfluenza Virus Type 2 Not Detected (NOT DETECT); Parainfluenza Virus Type 3 Not Detected (NOT DETECT); Parainfluenza Virus Type 4 Not Detected (NOT DETECT); Respiratory Syncytial Virus A Not Detected (NOT DETECT); Respiratory Syncytial Virus B Not Detected (NOT DETECT); SARS-COV-2 Detected (NOT DETECT)
[2021-10-04 11:38] LABS: Troponin 5 2HR Delta -0.54 ABS# (0-10)
[2021-10-04 12:28] LABS: C Reactive Protein 50.2 mg/L (0.0-4.9); NT Pro B Type Natriuretic Pept 131 pg/mL (0-125)
--- NOTE | 2021-10-04 12:34 | PM.HP ---
Providers/Chief Complaint Admitting Physician: Artem Yeung MD Primary Care Provider: Krunal Painter DO Chief Complaint: sob History of Present Illness Edvin Echeverria is a 71 year old male presents to the emergency department from home with increasing shortness of breath and wheezing. He has been coughing quite a bit as well. He has had no fever. He has had some stomach upset. He has been around his mother, which has tested positive for COVID. He has not had any vomiting, diarrhea. His cough has not been productive. He does have underlying COPD for which he uses inhaler. He has not been intubated before secondary to his COPD and does not use home oxygen. He is not vaccinated for COVID. In the emergency department he was found to require 3-1/2 L of oxygen. He was given dexamethasone, and a breathing treatment. Review of Systems General: Reports: 10 or more systems reviewed and unremarkable except in HPI and below Const: Reports: change in appetite, fatigue and malaise; Denies: fever(s) or chills Eyes: Denies: change in vision ENMT: Denies: throat pain Card: Reports: dyspnea on exertion; Denies: chest pain Resp: Reports: dyspnea, non-productive cough and wheezing GI: Reports: abdominal pain; Denies: nausea or vomiting : Denies: flank pain, difficulty urinating or dysuria Musc: Denies: neck pain Skin/Breast: Denies: rash Psych: Denies: anxiety Endo: Denies: polyuria Steve/Lymph: Denies: easy bruising All/Imm: Denies: urticaria Medications/Allergies Home Medications Medication Instructions Recorded Confirmed Last Taken Type albuterol sulfate 90 mcg/actuation 2 puff inhalation QID PRN 10/04/21 10/04/21 10/04/21 History aerosol inhaler Shortness Of Breath aspirin 81 mg tablet,delayed 162 mg PO ONCE 10/04/21 10/04/21 10/03/21 History release atorvastatin 40 mg tablet 20 mg PO BEDTIME 10/04/21 10/04/21 10/03/21 History cholecalciferol (vitamin D3) 50 50 mcg PO BEDTIME 10/04/21 10/04/21 10/03/21 History mcg (2,000 unit) tablet vitamin E 200 unit capsule 200 unit PO DAILY 10/04/21 10/04/21 10/03/21 History Allergies Allergy/AdvReac Type Severity Reaction Status Date / Time No Known Allergies Allergy Verified 10/04/21 09:28 PFSH Acute PFSH: Medical History (Updated 10/04/21 @ 12:48 by Artem Yeung MD) Calcium renal calculus COPD (chronic obstructive pulmonary disease) Hyperlipidemia Ureterolithiasis Surgical History Status post laser lithotripsy of ureteral calculus Family History Father Cancer Brother CAD (coronary artery disease) Social History Smoking and tobacco status: current every day smoker Alcohol intake: never Adopted: No Caregiver/support person: No Lives independently: Yes Marital status: Current occupational status: retired History of recent travel: No Current gender identity: Male Other PFSH information: Supplemental PFSH Information: Node surgery, distant history for abscess, neck Vitals/I&O/Wt Last Vital Signs Temp 98.8 F 10/04/21 08:34 Pulse 91 10/04/21 10:42 Resp 20 H 10/04/21 10:42 BP 154/70 10/04/21 08:34 Pulse Ox 93 10/04/21 10:42 O2 Del Method 10/04/21 10:42 O2 Flow Rate 3.5 10/04/21 10:42 Weight last 48 hrs Weight 56.699 kg Physical Exam Narrative: On exam is a white male, with mild retractions and audible wheezing. HEENT: Pupils equally round. Oropharynx clear. Neck is supple no lymphadenopathy or thyromegaly Cardiovascular regular rate and rhythm without murmur, no S3 or S4 Lungs bilateral expiratory wheezes. No crackles Abdomen is soft with positive bowel sounds. No obvious organomegaly. No tenderness present currently. exam is deferred Extremities no cyanosis clubbing or edema, cap refill brisk Skin no rash Neuro no obvious focal deficits. Data : 10/04/21 09:00 10/04/21 09:00 Other Labs: EKG demonstrates a sinus rhythm, rate of 95, normal axis. Blood culture was collected Chest x-ray shows a fracture posterior left rib, groundglass densities left lung base, question nodularity right peripheral lung base Dimer is 0.85 ABG demonstrates a pH 7.43, PCO2 45, PO2 64 on 3.5 L LFTs normal with exception of total bilirubin of 1.7 CRP is 50 BNP 131 Albumin 3.2 Troponin 9 with repeat of 8.46 Procalcitonin 0.04 Urinalysis ordered but pending COVID PCR positive Micro: Microbiology 10/04/21 09:08 Blood Culture - Preliminary Blood SPECIMEN COLLECTED 10/04/21 09:05 Blood Culture - Preliminary Blood SPECIMEN COLLECTED A&P Assessment and plan (1) COVID-19: Patient with Covid 19, and evidence of pneumonia. Low likelihood for PE with minimal elevation in dimer Patient agreeable to dexamethasone but refuses remdesivir at this point. Trend CRP, worsening with increased inflammation consider baricitinib or tocilizumab Pulmonary toilet Avoid overhydration. Note that BNP was checked and not significantly elevated. Status: Acute (2) Acute respiratory failure with hypoxia: Secondary to above Status: Acute (3) Pneumonia: Related to COVID-19 pneumonia. Bacterial pneumonia unlikely, but will treat with Rocephin and a Zithromax empirically at this point. Sputum culture will be checked. Status: Acute (4) COPD with acute exacerbation: DuoNeb every 4 hours Budesonide twice daily Dexamethasone, 6 mg IV daily secondary to concomitant COVID Monitor closely for improvement Status: Acute (5) Rib fracture: Noted on x-ray. Patient currently without significant discomfort. Status: Acute Plan Slight nodularity, present on chest x-ray right lung base. Consider repeat chest x-ray in short-term follow-up as outpatient Multiple other medical problems as outlined in past medical history Limited code. He does not want endotracheal tube or intubation but would take all other treatments Lovenox for DVT prophylaxis Attestations Medical Necessity Statement*: Will require greater than 2 midnight stay for treatment of COVID 19 related pneumonia in this patient who is hypoxic. Coding Level of Care Code Acute Disc Pad Grinder for [facility] Diagnoses COVID-19 U07.1 Acute respiratory failure with hypoxia J96.01 Pneumonia J18.9 COPD with acute exacerbation J44.1 Rib fracture S22.39XA
[2021-10-04] MEDS: cefTRIAXone 1,000 MG in sodium chloride 0.9% (plus) 50 ML 100 MG IV (13:09)
[2021-10-04 13:30] LABS: Urine Appearance Clear (CLEAR); Urine Color Yellow (Yellow)
[2021-10-04 13:31] LABS: Blood Urine Trace (Negative); Glucose Urine UA Norm (Normal); Ketones Urine 2+ (Negative); Nitrate Urine Negative (Negative); Protein Urine Neg (Negative); pH Urine 5 (5-7)
[2021-10-04 13:32] LABS: Bilirubin Urine Neg (Negative); Leukocyte Esterase Urine Negative (Negative); Urobilinogen Urine 4 mg/dL (Negative)
[2021-10-04] MEDS: azithromycin 500 MG in sodium chloride 0.9% 250 ML 250 MG IV (13:34)
[2021-10-04 13:45] LABS: Add Urine Culture? No; Bacteria Urine TRACE /hpf; Mucus Urine 1+ /hpf; RBC Urine 0-4 /hpf (0-2); Squamous Epithelial Cell Urine 0-4 /hpf (0-5); WBC Urine 0-4 /hpf (0-5)
--- NOTE | 2021-10-04 14:49 | ECG_ITS ---
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 Measurements Intervals [place] Rate: 87 P: 77 MN: 138 QRS: 69 QRSD: 80 T: 69 QT: 351 QTc: 424 Interpretive Statements SINUS RHYTHM Compared to ECG 10/04/2021 10:46:23 No significant changes Electronically Signed On 10-05-2021 6:46:15 CDT by Albaro Fine M.D. [id number]
[2021-10-04 15:20] LABS: Troponin 5 6HR 7.53 ng/L (0-15)
[2021-10-04] MEDS: ipratropium-albuterol 3 mL Neb INHALATION ×2 (16:46→21:17)
[2021-10-04 17:33] LABS: Troponin 5 6HR Delta 1.02 ng/L (0-12)
[2021-10-04] MEDS: famotidine 20 mg Tablet PO (18:04)
--- NOTE | 2021-10-04 19:29 | PC.NURSE ---
Bedside report to Marisa REDDY at this time.
[2021-10-04] MEDS: atorvastatin 40 mg Tablet 20 MG PO (20:27)
[2021-10-04] MEDS: budesonide 0.5 mg/2 mL Neb INHALATION (21:17)
[2021-10-05] VITALS (13 sets, daily range): BP systolic 94–128; BP diastolic 58–79; PULSE 80–97; RESP 12–20; TEMP 36.4–37.2; O2SAT 90–97
[2021-10-05] MEDS: ipratropium-albuterol 3 mL Neb INHALATION ×5 (00:16→15:18)
[2021-10-05 05:35] LABS: Basophils % 0.3 %; Hematocrit 35.8 % (42.0-52.0); Hemoglobin 12.4 g/dL (11.7-16.6); Lymphocytes # 0.8 10^3/uL (0.8-4.8); Mean Corpuscular HGB Conc 34.6 g/dL (30.0-36.0); Mean Corpuscular Hemoglobin 30.7 pg (28.0-34.0); Mean Corpuscular Volume 88.6 fl (80-94); Mean Platelet Volume 11.1 fL (7.4-10.4); Monocytes # 0.4 10^3/uL (0.2-0.9); Monocytes % 7.2 %; Neutrophils # 4.82 10^3/uL (1.8-7.7); Nucleated Red Blood Cells % 0 %; Platelet Count 142 10^3/cmm (130-400); Red Blood Count 4.04 10^6/uL (4.1-5.3); Red Cell Distribution Width 13.2 % (12.1-15.1); White Blood Count 6.1 10^3/uL (4.0-10.0)
[2021-10-05 06:04] LABS: Alanine Aminotransferase 8 U/L (0-41); Albumin Level 3.3 g/dL (3.5-5.2); Alkaline Phosphatase 51 IU/L (40-130); Anion Gap 9.3 (5-19); Aspartate Amino Transferase 17 U/L (0-40); Blood Urea Nitrogen 16 mg/dL (8-23); C Reactive Protein 75.9 mg/L (0.0-4.9); Calcium 8.5 mg/dL (8.5-10.5); Carbon Dioxide 31 mmol/L (22-29); Chloride 101 mmol/L (98-107); Globulin 2.3 g/dL (1.3-4.6); Glomerular Filtration Rate 133.6 mL/min (90-130); Glucose 118 mg/dL (65-115); Osmolality Calculated 288 mOsm/kg (285-295); Potassium 3.3 mmol/L (3.5-5.1); Sodium 138 mmol/L (136-145); Total Bilirubin 1.5 mg/dL (0.15-1.2); Total Protein 5.6 g/dL (6.6-8.7)
[2021-10-05] MEDS: budesonide 0.5 mg/2 mL Neb INHALATION (08:06)
--- NOTE | 2021-10-05 09:05 | PM.PN ---
Subjective Subjective: Edvin reports he is feeling better. Less short of breath. Less wheezing. He is coughing quite a bit, and his cough is productive of sputum. No chest discomfort. Medications: Reviewed: Yes Vitals/I&O/Wt Last Vital Signs Temp 97.6 F 10/05/21 08:00 Pulse 91 10/05/21 08:13 Resp 16 10/05/21 08:00 BP 114/71 10/05/21 08:00 Pulse Ox 91 10/05/21 08:00 O2 Del Method 10/05/21 08:00 O2 Flow Rate 2 10/05/21 08:00 10/04/21 10/05/21 10/05/21 22:59 06:59 14:59 Intake Total 660 / 660 360 / 1020 Output Total 100 / 100 Balance 560 / 560 360 / 920 Weight last 48 hrs Weight 56.699 kg Physical Exam Narrative: On exam is a white male, no distress today, on 2 L of oxygen Neck is supple no lymphadenopathy or thyromegaly Cardiovascular regular rate and rhythm without murmur, no S3 or S4 Lungs relatively clear. No crackles. Diminished breath sounds are noted bilaterally. Abdomen is soft with positive bowel sounds. No obvious organomegaly. No tenderness present currently. exam is deferred Extremities no cyanosis clubbing or edema, cap refill brisk Skin no rash Data : 10/05/21 05:20 10/05/21 05:20 Micro: Microbiology 10/04/21 09:08 Blood Culture - Preliminary Blood SPECIMEN COLLECTED 10/04/21 09:05 Blood Culture - Preliminary Blood SPECIMEN COLLECTED A&P Assessment and plan (1) COVID-19: Patient with Covid 19, and evidence of pneumonia. Low likelihood for PE with minimal elevation in dimer Patient agreeable to dexamethasone but refuses remdesivir at this point. CRP slightly worse but patient clinically improving., If clinically worsens with increased inflammation consider baricitinib or tocilizumab Continue pulmonary toilet Avoid overhydration. Note that BNP was checked and not significantly elevated. Status: Acute (2) Acute respiratory failure with hypoxia: Secondary to above Status: Acute (3) Pneumonia: Related to COVID-19 pneumonia. Bacterial pneumonia unlikely, but will treat with Rocephin and a Zithromax empirically at this point. Sputum culture has been obtained and pending Status: Acute (4) COPD with acute exacerbation: DuoNeb every 4 hours Budesonide twice daily Dexamethasone, 6 mg IV daily secondary to concomitant COVID Monitor closely for improvement Status: Acute (5) Rib fracture: Noted on x-ray. Patient currently without significant discomfort. Status: Acute Plan Slight nodularity, present on chest x-ray right lung base. Consider repeat chest x-ray in short-term follow-up as outpatient Multiple other medical problems as outlined in past medical history Limited code. He does not want endotracheal tube or intubation but would take all other treatments Lovenox for DVT prophylaxis Attestations Medical Necessity Statement*: Needs continued hospitalization for close follow-up and treatment of COPD exacerbation still requiring oxygen as well as COVID-19 pneumonia. Coding Level of Care Code Acute Business Process Manager for [facility] Diagnoses COVID-19 U07.1 Acute respiratory failure with hypoxia J96.01 Pneumonia J18.9 COPD with acute exacerbation J44.1 Rib fracture S22.39XA
[2021-10-05] MEDS: famotidine 20 mg Tablet PO ×2 (09:07→17:07)
[2021-10-05] MEDS: dexamethasone 10 mg/mL INJ 6 MG IVP (09:07)
[2021-10-05] MEDS: aspirin 81 mg EC Tablet 162 MG PO (09:07)
[2021-10-05] MEDS: cefTRIAXone 1,000 MG in sodium chloride 0.9% (plus) 50 ML 100 MG IV (11:48)
[2021-10-05] MEDS: azithromycin 500 MG in sodium chloride 0.9% 250 ML 250 MG IV (12:21)
[2021-10-05] MEDS: enoxaparin 40 mg/0.4 mL Syringe SUBCUT (17:08)
[2021-10-06] VITALS (10 sets, daily range): BP systolic 131–136; BP diastolic 72–80; PULSE 73–89; RESP 16–18; TEMP 36.4–36.8; O2SAT 87–95
[2021-10-06] MEDS: ipratropium-albuterol 3 mL Neb INHALATION ×2 (03:36→08:11)
[2021-10-06 04:51] LABS: Basophils % 0.4 %; Hemoglobin 11.7 g/dL (11.7-16.6); Lymphocytes # 1.1 10^3/uL (0.8-4.8); Lymphocytes % 15.5 %; Mean Corpuscular HGB Conc 33.4 g/dL (30.0-36.0); Mean Corpuscular Volume 95.6 fl (80-94); Mean Platelet Volume 11.1 fL (7.4-10.4); Monocytes # 0.4 10^3/uL (0.2-0.9); Monocytes % 6.5 %; Neutrophils # 5.25 10^3/uL (1.8-7.7); Nucleated Red Blood Cells % 0 %; Platelet Count 167 10^3/cmm (130-400); Red Blood Count 3.66 10^6/uL (4.1-5.3); Red Cell Distribution Width 13.7 % (12.1-15.1); White Blood Count 6.8 10^3/uL (4.0-10.0)
[2021-10-06 05:13] LABS: D Dimer 0.98 ug/mIFEU (0-0.59)
[2021-10-06 05:19] LABS: Alanine Aminotransferase 11 U/L (0-41); Albumin Level 2.9 g/dL (3.5-5.2); Alkaline Phosphatase 52 IU/L (40-130); Anion Gap 10.1 (5-19); Aspartate Amino Transferase 24 U/L (0-40); Blood Urea Nitrogen 13 mg/dL (8-23); C Reactive Protein 32.6 mg/L (0.0-4.9); Calcium 8.4 mg/dL (8.5-10.5); Carbon Dioxide 31 mmol/L (22-29); Chloride 102 mmol/L (98-107); Globulin 2.5 g/dL (1.3-4.6); Glomerular Filtration Rate 133.6 mL/min (90-130); Glucose 110 mg/dL (65-115); Osmolality Calculated 291 mOsm/kg (285-295); Potassium 3.1 mmol/L (3.5-5.1); Sodium 140 mmol/L (136-145); Total Bilirubin 1.5 mg/dL (0.15-1.2); Total Protein 5.4 g/dL (6.6-8.7)
[2021-10-06] MEDS: budesonide 0.5 mg/2 mL Neb INHALATION (08:11)
[2021-10-06] MEDS: famotidine 20 mg Tablet PO (08:43)
[2021-10-06] MEDS: aspirin 81 mg EC Tablet 162 MG PO (08:43)
[2021-10-06] MEDS: potassium chloride ER 20 mEq Tablet 40 MEQ PO (08:43)
[2021-10-06] MEDS: dexamethasone 10 mg/mL INJ 6 MG IVP (08:43)
--- NOTE | 2021-10-06 10:32 | PM.DCS ---
Discharge Providers Date of Admission: 10/04/21 12:45 Date of Discharge: October 06, 2021 Attending Provider at Admission: Artem Yeung MD Attending Provider at Discharge: Artem Yeung MD Primary Care Provider: Krunal Painter DO Diagnoses at Discharge Discharge Diagnosis (1) COVID-19: Status: Acute (2) Acute respiratory failure with hypoxia: Status: Acute (3) Pneumonia: Status: Acute (4) COPD with acute exacerbation: Status: Acute (5) Rib fracture: Status: Acute Reason for Visit Reason for Visit: sob Hospital Course Hospital Course Edvin presented to the hospital with shortness of breath and cough. He was found to have COVID-19 pneumonia. He was placed on dexamethasone. He refused remdesivir. He was also treated with empiric antibiotics. He was given frequent pulmonary toilet for COPD exacerbation. He was counseled not to smoke. Over the course of his hospital stay he had gradual improvement. He weaned down to 2 L of oxygen. Inflammation markers were decreasing. He was anxious to get home, and with his improvement this seems reasonable at this time. He will finish up 2 more days of steroids, continue breathing treatments per nebulizer, follow-up with his regular physician in 3 to 5 days. He was told to quarantine for 10 days after onset of symptoms. He was encouraged to get a vaccine, but reported he was not interested. I discussed with him some nodularity in his right lower lung that he will need an x-ray in approximately 3 weeks coordinated by his primary care provider. Questions were answered. Physical Exam Narrative: General exam no distress Neck is supple no lymphadenopathy thyromegaly Cardiovascular regular rate and rhythm without murmur Lungs a faint expiratory wheeze Abdomen is soft with positive bowel sounds Extremities no cyanosis clubbing or edema Discharge Data Studies Completed and Pending Completed Studies During Hospitalization Category Date Time Status XR chest 1V portable [id number] Urgent Exams 10/04/21 08:48 Completed Pending at discharge Category Date Time Status Blood Culture Stat Lab 10/04/21 09:08 Results Radiology Impressions Chest X-Ray 10/04/21 08:48 IMPRESSION: 1. Fracture of the posterior left 7th rib. 2. Trace ground-glass densities in the left lung base, may be consistent with mild pneumonia. 3. Questionable nodularity in the right peripheral lung base. Laboratory Results WBC 6.8 10^3/uL (4.0-10.0) 10/06/21 04:32 RBC 3.66 10^6/uL (4.1-5.3) L 10/06/21 04:32 Hgb 11.7 g/dL (11.7-16.6) 10/06/21 04:32 Hct 35.0 % (42.0-52.0) L 10/06/21 04:32 MCV 95.6 fl (80-94) H D 10/06/21 04:32 MCH 32.0 pg (28.0-34.0) 10/06/21 04:32 MCHC 33.4 g/dL (30.0-36.0) 10/06/21 04:32 RDW 13.7 % (12.1-15.1) 10/06/21 04:32 Plt Count 167 10^3/cmm (130-400) 10/06/21 04:32 MPV 11.1 fL (7.4-10.4) H 10/06/21 04:32 Neut % (Auto) 77.0 % 10/06/21 04:32 Lymph % (Auto) 15.5 % 10/06/21 04:32 [place] % (Auto) 6.5 % 10/06/21 04:32 Eos % (Auto) 0.0 % 10/06/21 04:32 Baso % (Auto) 0.4 % 10/06/21 04:32 Neut # (Auto) 5.25 10^3/uL (1.8-7.7) 10/06/21 04:32 Lymph # (Auto) 1.1 10^3/uL (0.8-4.8) 10/06/21 04:32 [place] # (Auto) 0.4 10^3/uL (0.2-0.9) 10/06/21 04:32 Eos # (Auto) 0.0 10^3/uL (0.0-0.8) 10/06/21 04:32 Baso # (Auto) 0.0 10^3/uL (0.0-0.1) 10/06/21 04:32 Nucleated RBC % (auto) 0 % 10/06/21 04:32 Nucleated RBCs # 0.0 /100WBC 10/06/21 04:32 D-Dimer 0.98 ug/mIFEU (0-0.59) H 10/06/21 04:32 Specimen Type Arterial 10/04/21 09:38 Sample Site Radial, right 10/04/21 09:38 ABG pH 7.43 (7.35-7.45) 10/04/21 09:38 ABG pCO2 44.6 mmHg (35-45) 10/04/21 09:38 ABG pO2 64.1 mmHg (80.0-100.0) L 10/04/21 09:38 ABG HCO3 29.6 mmol/L (22-26) H 10/04/21 09:38 ABG O2 Saturation 93.0 10/04/21 09:38 ABG Base Excess 4.5 mmol/L (-2.0-2.0) H 10/04/21 09:38 Filiberto Test Pos 10/04/21 09:38 A-a O2 Gradient 16.0 mmHg (5-10) H 10/04/21 09:38 Hematocrit 42.6 % (42-52) 10/04/21 09:38 Hgb O2 Saturation 91.3 % (95-100) L 10/04/21 09:38 Carboxyhemoglobin 1.5 %THgb (0.4-20.1) 10/04/21 09:38 Methemoglobin 0.4 % (0.4-1.5) 10/04/21 09:38 Total Hemoglobin 13.9 g/dL (14-18) L 10/04/21 09:38 Sodium 137.0 mmol/L (131-143) 10/04/21 09:38 Potassium 3.2 mmol/L (3.5-5.0) L 10/04/21 09:38 Glucose 115.0 mg/dL (70-115) 10/04/21 09:38 Ionized Calcium 1.1 mmol/L (1.1-1.4) 10/04/21 09:38 O2 Delivery Device Nc 10/04/21 09:38 O2 Liters/Min 3.5 % 10/04/21 09:38 FiO2 34.0 % 10/04/21 09:38 Medical Office Technology Instructor ID Monro 10/04/21 09:38 Sodium 140 mmol/L (136-145) 10/06/21 04:32 Potassium 3.1 mmol/L (3.5-5.1) L 10/06/21 04:32 Chloride 102 mmol/L (98-107) 10/06/21 04:32 Carbon Dioxide 31 mmol/L (22-29) H 10/06/21 04:32 Anion Gap 10.1 (5-19) 10/06/21 04:32 BUN 13 mg/dL (8-23) 10/06/21 04:32 Creatinine 0.6 mg/dL (0.7-1.2) L 10/06/21 04:32 GFR Calculation 133.6 mL/min (90-130) H 10/06/21 04:32 Glucose 110 mg/dL (65-115) 10/06/21 04:32 Calculated Osmolality 291 mOsm/kg (285-295) 10/06/21 04:32 Calcium 8.4 mg/dL (8.5-10.5) L 10/06/21 04:32 Magnesium 2.0 mg/dL (1.7-2.3) 10/05/21 05:20 Total Bilirubin 1.5 mg/dL (0.15-1.2) H 10/06/21 04:32 AST 24 U/L (0-40) 10/06/21 04:32 ALT 11 U/L (0-41) 10/06/21 04:32 Alkaline Phosphatase 52 IU/L (40-130) 10/06/21 04:32 Troponin T Baseline 9 ng/L (0-15) 10/04/21 09:00 Troponin T 120 Minute 8.46 ng/L (0-15) 10/04/21 10:39 Delta Troponin T -0.54 ABS# (0-10) L 10/04/21 10:39 Troponin T Hi Sens 6Hr 7.53 ng/L (0-15) 10/04/21 14:50 Troponin T Hi Sens 6Hr Delta 1.02 ng/L (0-12) 10/04/21 14:50 C-Reactive Protein 32.6 mg/L (0.0-4.9) H 10/06/21 04:32 NT-Pro-B Natriuret Pep 131 pg/mL (0-125) H 10/04/21 09:00 NT-Pro-B Natriuret Pep 133 pg/mL (0-125) H 10/04/21 09:00 Total Protein 5.4 g/dL (6.6-8.7) L 10/06/21 04:32 Albumin 2.9 g/dL (3.5-5.2) L 10/06/21 04:32 Globulin 2.5 g/dL (1.3-4.6) 10/06/21 04:32 Procalcitonin 0.04 ng/mL (0-0.5) 10/04/21 09:00 Urine Color Yellow (Yellow) 10/04/21 12:41 Urine Appearance Clear (CLEAR) 10/04/21 12:41 Urine pH 5 (5-7) 10/04/21 12:41 Ur Specific [place] 1.010 (1.005-1.030) 10/04/21 12:41 Urine Protein Neg (Negative) 10/04/21 12:41 Urine Glucose (UA) Norm (Normal) 10/04/21 12:41 Urine Ketones 2+ (Negative) H 10/04/21 12:41 Urine Blood Trace (Negative) H 10/04/21 12:41 Urine Nitrate Negative (Negative) 10/04/21 12:41 Urine Bilirubin Neg (Negative) 10/04/21 12:41 Urine Urobilinogen 4 mg/dL (Negative) H 10/04/21 12:41 Ur Leukocyte Esterase Negative (Negative) 10/04/21 12:41 Urine RBC 0-4 /hpf (0-2) H 10/04/21 12:41 Urine WBC 0-4 /hpf (0-5) H 10/04/21 12:41 Ur Squamous Epith Cells 0-4 /hpf (0-5) H 10/04/21 12:41 Amorphous Sediment Not Reportable 10/04/21 12:41 Urine Bacteria Trace /hpf (NONE) 10/04/21 12:41 Urine Mucus 1+ /hpf 10/04/21 12:41 Coronavirus 229E (PCR) Not detected (NOT DETECT) 10/04/21 09:23 SARS-CoV-2 (PCR) Detected (NOT DETECT) A 10/04/21 09:23 Vitals Last Vital Signs Temp 97.6 F 10/06/21 08:00 Pulse 75 10/06/21 08:19 Resp 16 10/06/21 08:19 BP 133/80 10/06/21 08:00 Pulse Ox 91 10/06/21 10:12 O2 Del Method 10/06/21 08:19 O2 Flow Rate 2 10/06/21 10:12 Discharge Plan Discharge Patient Disposition: Home Condition: Stable Prescriptions: New famotidine 20 mg Tablet 20 mg PO BID Qty: 60 0RF budesonide 0.5 mg/2 mL Suspension For Nebulization 0.5 mg inhalation BID Qty: 120 0RF dexamethasone 6 mg tablet 6 mg PO DAILY Qty: 2 0RF cefdinir 300 mg capsule 300 mg PO Q12H 5 Days Qty: 10 0RF ipratropium-albuterol 0.5 mg-3 mg(2.5 mg base)/3 mL solution for nebulization 3 ml inhalation QID PRN (Reason: shortness of breath or wheezing) Qty: 180 0RF Continued atorvastatin 40 mg Tablet 20 mg PO BEDTIME vitamin E 200 unit Capsule 200 unit PO DAILY aspirin 81 mg Tablet,Delayed Release (Dr/Ec) 162 mg PO ONCE albuterol sulfate 90 mcg/actuation Hfa Aerosol Inhaler 2 puff INHALATION QID PRN (Reason: Shortness Of Breath) cholecalciferol (vitamin D3) 50 mcg (2,000 unit) Tablet 50 mcg PO BEDTIME Discharge Orders: Discharge Order (Routine); Ordered 10/06/21 Ordered By: Artem Yeung Other Ambulatory Orders: DME: Nebulizer with Neb Kit (Order) Location: None Selected Ordered By: Artem eYung DME: Oxygen (Order) Location: None Selected Ordered By: Artem Yeung Referrals: Krunal Painter DO [Primary Care Provider] - 10/24/21 11:00 am Discharge Diet: Regular Discharge Activity: Increase activity as tolerated Patient Instructions: Famotidine (By mouth), Budesonide (By breathing), Ipratropium/Albuterol (By breathing), Dexamethasone (By mouth), Cefdinir (By mouth), How to Use a Nebulizer (DC), COVID-19 (Coronavirus Disease 2019) (GEN), Opioid Safety, Pneumonia Stoplight, Pneumonia - Viral Activity Restrictions/Additional Instructions: Follow-up with your primary care provider for evaluation for repeat x-ray in 3 weeks. There was some nodularity in the right lower lung, likely secondary to your COVID 19 pneumonia but this will need follow-up. Return for any concerns No smoking Take all medicine as prescribed Discharge Attestations Time Spent in Discharge Care*: greater than 30 min Quality Metrics Clinical Quality Measures [ No reported AMI, CVA or VTE this stay] Coding Level of Care Code Acute [facility] note Diagnoses COVID-19 U07.1 Acute respiratory failure with hypoxia J96.01 Pneumonia J18.9 COPD with acute exacerbation J44.1 Rib fracture S22.39XA
== END 2021-10-06 15:35 | disposition home or self-care (01) | DRG 177 ==
LOC: ER 11:01 → MEDSURG 14:33
PROVIDERS: Physician Assistant; Admitting Provider Internal Medicine; Emergency Provider Family Medicine; PCP Emergency Medicine Emergency Medical Services; Visit Provider Internal Medicine
DX: U07.1 COVID-19 (principal); J12.82 Pneumonia due to coronavirus disease 2019; J96.01 Acute respiratory failure with hypoxia; S22.32XA Fracture of one rib, left side, initial encounter for closed fracture; J44.1 Chronic obstructive pulmonary disease with (acute) exacerbation; Z28.310 Unvaccinated for COVID-19; Z28.9 Immunization not carried out for unspecified reason; E78.5 Hyperlipidemia, unspecified; F17.200 Nicotine dependence, unspecified, uncomplicated; X58.XXXA Exposure to other specified factors, initial encounter; R91.1 Solitary pulmonary nodule; Z79.82 Long term (current) use of aspirin; Z79.51 Long term (current) use of inhaled steroids
CPT/HCPCS: 36415; 36600; 71045; 80051; 80053; 81001; 82330; 82805; 83735; 83880; 84145; 84484; 85025; 85378; 86140; 87040; 87070; 87205; 87635; 93005; 94640; 96365; 96367; 96372; 96375; 99291; J0456; J0696; J1100; J1650; J7050; J7614; J7626

== ENCOUNTER 2022-02-14 09:15 | Outpatient (CLI) | payer OTHER, SELFPAY ==
--- NOTE | 2022-02-14 09:25 | CT_ITS ---
WS: [id number] CT CHEST TECHNIQUE: Contrast enhanced CT of the chest with coronal and sagittal reformatted images. CLINICAL INFORMATION: PER XRAY NEED CT COMPARISON: None. DLP: 557.[address] scans at [facility] use at least one of these dose optimization techniques: automated e xposure control; mA and/or kV adjustment per patient size (includes targeted exams where dose is matc hed to clinical indication); or iterative reconstruction. FINDINGS:Consolidation RIGHT lower lobe medially with air bronchograms. Fluid and secretions in the R IGHT lower lobe bronchi anteriorly and medially. Narrowing of the RIGHT lower lobe bronchi. No visual ized endobronchial mass. Recommend further evaluation with bronchoscopy. Small patchy opacity in the LEFT lower lobe likely infectious or inflammatory. A few scattered tiny subpleural nodules. Enlarged RIGHT hilar lymph nodes measuring 9 to 10 mm. Enlarged RIGHT peribronchial lymph nodes. No s ubcarinal lymphadenopathy. Bilateral bronchovascular thickening. Moderate chronic emphysematous changes. Patchy tree-in-bud infiltrates in the LEFT upper lobe about t he hilum likely infectious or inflammatory. Aneurysmal ascending thoracic aorta measuring 4.8 cm. Uvaldo cending thoracic aorta is normal. Aortic calcification. Proximal main pulmonary arteries are normal. Thickened adrenal glands bilaterally. Small bilateral renal cysts. Normal GE junction. Celiac and SMA are patent in the upper abdomen. Heterogeneous liver enhancement. Correlation with liver function tests. Mild thoracic kyphosis. RIGHT thyroid nodule measuring [address]/CT chest w con* [id number] IMPRESSION: 1. Partial wedge-shaped consolidation RIGHT lower lobe anteriorly and medially with narrowing of the RIGHT lower lobe bronchi. Findings compatible with pneum onia and underlying neoplasm not excluded. Recommend further evaluation with br onchoscopy. 2. Enlarged RIGHT hilar lymph nodes measuring up to 10 mm. 3. Tree-in-bud infiltrates in the LEFT upper lobe about the hilum likely infec tious or inflammatory. 4. Aneurysmal ascending thoracic aorta measuring 4.8 cm. 5. RIGHT thyroid nodule measuring 11 mm. 6. Heterogeneous liver enhancement. Recommend correlation with liver function tests.
[2022-02-14 10:39] LABS: Blood Urea Nitrogen 29 mg/dL (8-23); Glomerular Filtration Rate 74.1 mL/min (90-130)
[2022-02-14] MEDS: iohexol 350 mg/mL 500 mL Btl (per mL) IV (10:51)
== END 2022-02-14 09:16 | disposition home or self-care (01) ==
LOC: RAD 09:19
PROVIDERS: PCP Emergency Medicine Emergency Medical Services; Visit Provider Emergency Medicine Emergency Medical Services
DX: Z01.89 Encounter for other specified special examinations (principal); E04.1 Nontoxic single thyroid nodule; R91.8 Other nonspecific abnormal finding of lung field; I71.21 Aneurysm of the ascending aorta, without rupture
CPT/HCPCS: 71260; 82565; 84520; Q9967

== ENCOUNTER 2022-03-24 12:23 | Outpatient (CLI) | payer OTHER, SELFPAY ==
--- NOTE | 2022-03-24 12:36 | USCV_ITS ---
Edvin Echeverria Age: 71 Gender: M : 1950 Exam Date: 03/24/2022 13:03 Ordering Phys: Krunal Painter DO Technologist: ARABELLA [place]am Location[place] [facility] [place]ication: TAA BP: 148 / 92 HR: 38 Rhythm: Sinus Technical Quality: Adequate MEASUREMENTS (Male / Female) Normal Values 2D ECHO LVOT Diameter 2.0 cm LV Ejection Fraction MOD 2C 64.5 % LV Ejection Fraction 2C AL 65.0 % LA Diameter 3.1 cm LA Width 3.2 cm LA Height 4.4 cm RA Width 3.1 cm RA Height 4.6 cm Aorta at Sinotubular Diameter 2.5 cm IVC Diameter 1.7 cm M-MODE Aortic Annulus Diameter 2.7 cm LA Ao Ratio MM 1.1 MV E Point Septal Separation 0.3 cm DOPPLER AV Peak Velocity 139.0 cm/s LVOT Peak Velocity 107.0 cm/s AV Area Cont Eq vti 2.5 cm squared AV Area Cont Eq pk 2.4 cm squared MV Peak Velocity 106.0 cm/s MV Area PHT 4.6 cm squared Mitral E to A Ratio 1.1 MV E' Velocity 52.0 cm/s Mitral E to MV E' Ratio 6.5 Mitral E to LV E' Lateral Ratio 7.4 Mitral E to LV E' Septal Ratio 5.8 TR Peak Velocity 131.9 cm/s TR Peak Gradient 7.0 mmHg TR Mean Velocity 107.0 cm/s TR Mean Gradient 4.7 mmHg TR Velocity Time Integral 29.0 cm TV Peak E Velocity 62.0 cm/s Right Atrial Pressure 3.0 mmHg Pulmonary Artery Systolic Pressu 10.0 mmHg PV Peak Velocity 129.0 cm/s RV Acceleration Time 0.1 s RV Ejection Time 0.3 s RV AcT/ET 0.4 FINDINGS Left Ventricle Normal left ventricular size, systolic function and wall thickness, with no regional wall motion abnormalities. Left ventricular ejection fraction is estimated at 60 %. Normal diastolic function. Right Ventricle Normal right ventricular size and systolic function. Normal right ventricular systolic pressure. Right Atrium Mildly increased right atrial size. Left Atrium Normal left atrial size. Mitral Valve Structurally normal mitral valve. No mitral valve stenosis. Trace mitral valve regurgitation. Aortic Valve Structurally normal trileaflet aortic valve. No aortic valve stenosis. Mild aortic valve regurgitation. Tricuspid Valve Structurally normal tricuspid valve. No tricuspid valve stenosis. Trace tricuspid valve regurgitation. Pulmonic Valve Structurally normal pulmonic valve. No pulmonary valve stenosis. No pulmonary valve regurgitation. Pericardium No pericardial effusion. Aorta Normal size aortic root and proximal ascending aorta. IVC Normal IVC dimension with >50% respiratory change of the inferior vena cava. CONCLUSIONS 1. Normal left ventricular size, systolic function and wall thickness, with no regional wall motion abnormalities. Left ventricular ejection fraction is estimated at 60 %. Normal diastolic function. 2. Mild aortic valve regurgitation. 3. No prior similar srudies to compare. Yadira Walker MD (Electronically Signed) Final Date: 24 March 2022 15:11 S
== END 2022-03-24 12:24 | disposition home or self-care (01) ==
LOC: RAD 12:24
PROVIDERS: PCP Emergency Medicine Emergency Medical Services; Visit Provider Emergency Medicine Emergency Medical Services
DX: I71.20 Thoracic aortic aneurysm, without rupture, unspecified (principal); I35.1 Nonrheumatic aortic (valve) insufficiency
CPT/HCPCS: 93306

== ENCOUNTER → 2022-03-28 11:49 | Outpatient (BNVA) | payer OTHER, SELFPAY | PROVIDERS: PCP Emergency Medicine Emergency Medical Services; Visit Provider Internal Medicine Pulmonary Disease | DX: J98.09 Other diseases of bronchus, not elsewhere classified (principal); J18.9 Pneumonia, unspecified organism; J44.9 Chronic obstructive pulmonary disease, unspecified; Z87.891 Personal history of nicotine dependence; G93.39 Other post infection and related fatigue syndromes; U09.9 Post COVID-19 condition, unspecified | CPT/HCPCS: 99204 ==

== ENCOUNTER 2022-04-03 07:14 | Outpatient (CLI) | payer OTHER, SELFPAY ==
--- NOTE | 2022-04-03 07:45 | CT_ITS ---
WS: [id number] CT CHEST WITHOUT INTRAVENOUS CONTRAST HISTORY: lung screening TECHNIQUE: Contiguous 5 mm axial imaging performed on the thorax. Coronal and sagittal reformats are submitted. All CT scans at [facility] use at least one of these dose optimization techniques: automated exposure control; mA and/or kV adjustment per patient size (includes targeted exams where dose is matched to clinical indication); or iterative reconstruction. CONTRAST: None DLP: 313.23 mGy.cm COMPARISON: 02/14/2022 Lungs and central airway: Hyperexpanded lungs from emphysema. There is considerable improvement in th e area of consolidation and atelectasis in the medial RIGHT lower lobe. Linear areas of atelectasis a long the bronchovascular tree of the medial RIGHT lower lobe persists along with bronchiectasis. Mild bronchial wall thickening and continued opacification. Tree-in-bud airspace disease in the LEFT uppe r lobe has nearly completely resolved. There is a small amount of increased opacification reticular t hickening towards the lingula. Minimal progression subsolid consolidation in the LEFT lower lobe may have a central cavitation. Pleura: Normal. No pleural effusion. Heart and pericardium: Normal size. Mediastinum and amarilys: No definite adenopathy noted on this unenhanced exam. Vessels: Atherosclerotic ectatic and mildly aneurysmal aorta. Maximum ascending aorta diameter is 5.2 cm. Minimal progression since the prior study is probably within normal variation. Pulmonary artery is normal size. Chest wall and lower neck: Partially calcified RIGHT inferior thyroid nodule at 12 mm. Upper abdomen: Incompletely visualized 2.5 cm low-attenuation mass LEFT kidney is probably a cyst. No change in size since 04/30/2019. Osseous structures: No destructive process. CT/CT chest wo con [id number] IMPRESSION: 1. Significant but incomplete resolution of the dense consolidation in the med ial RIGHT lower lobe. Developing bronchiectasis with residual bronchial thicken ing in the RIGHT lower lobe. Recommend continued follow-up. 2. Significant but incomplete improvement in tree-in-bud airspace disease LEFT upper lobe. 3. Very minimal progression of the subsolid consolidation with central cavitat ion periphery LEFT lower lobe. Recommend serial chest CT follow-up. Follow-up i n 3 months recommended. 4. Mild aneurysmal dilatation ascending thoracic aorta, 5.2 cm.
== END 2022-04-03 07:15 | disposition home or self-care (01) ==
LOC: RAD 07:15
PROVIDERS: PCP Emergency Medicine Emergency Medical Services; Visit Provider Internal Medicine Pulmonary Disease
DX: F17.210 Nicotine dependence, cigarettes, uncomplicated (principal); J44.1 Chronic obstructive pulmonary disease with (acute) exacerbation; U07.1 COVID-19
CPT/HCPCS: 71250

== ENCOUNTER 2022-04-27 10:37 | Outpatient (CLI) | payer OTHER, SELFPAY ==
--- NOTE | 2022-04-27 11:05 | US_ITS ---
WS: [id number] THYROID ULTRASOUND HISTORY: ONE YEAR FOLLOW UP ON NODULE COMPARISON: No prior ultrasound. Prior chest CT 02/14/2022 Right lobe: 1.7 cm x 1.9 cm x 4.1 cm (w x ap x l). Volume: 7.3 cm3. Normal size gland. Gland is heterogeneous. There is an irregular complex cyst within the mid gland me asuring 1.2 x 0.9 x 1.3 cm. No increased vascularity. Left lobe: 1.2 cm x 1.1 cm x 3.3 cm (w x ap x l). Volume: 2.2 cm3. Small gland. No mass. Isthmus: 0.3 cm. US/US thyroid [id number] IMPRESSION: 1. Cystic nodule with a maximum diameter of 1.2 cm in the mid RIGHT thyroid. M easurement is very similar to the prior chest CT of 02/14/2022. 2. Small atrophic LEFT thyroid.
== END 2022-04-27 10:38 | disposition home or self-care (01) ==
LOC: RAD 10:40
PROVIDERS: PCP Emergency Medicine Emergency Medical Services; Visit Provider Emergency Medicine Emergency Medical Services
DX: E04.1 Nontoxic single thyroid nodule (principal); E03.4 Atrophy of thyroid (acquired)
CPT/HCPCS: 76536

== ENCOUNTER → 2022-06-02 09:24 | Outpatient (BNVA) | payer OTHER, SELFPAY | PROVIDERS: PCP Emergency Medicine Emergency Medical Services; Visit Provider Internal Medicine Pulmonary Disease | DX: J98.09 Other diseases of bronchus, not elsewhere classified (principal); J44.9 Chronic obstructive pulmonary disease, unspecified; R53.83 Other fatigue; U09.9 Post COVID-19 condition, unspecified; Z87.891 Personal history of nicotine dependence | CPT/HCPCS: 99214 ==

== ENCOUNTER 2022-06-13 09:51 | Outpatient (CLI) | payer OTHER, SELFPAY ==
--- NOTE | 2022-06-13 10:06 | USCV_ITS ---
Edvin Echeverria Age: 71 Gender: M : 1950 Exam Date: 06/13/2022 10:36 Ordering Phys: Krunal Painter DO Technologist: Luke Becerra Exam Location: [facility] – [place] Indication: follow up on TAA 4.8cm per CT Done Feb 2022 BP: 147 / 84 HR: 63 Rhythm: Sinus Technical Quality: Adequate MEASUREMENTS (Male / Female) Normal Values 2D ECHO LV Diastolic Diameter PLAX 4.7 cm 4.2 - 5.9 / 3.9 - 5.3 cm LV Systolic Diameter PLAX 3.1 cm IVS Diastolic Thickness 0.9 cm 0.6 - 1.0 / 0.6 - 0.9 cm IVS Systolic Thickness 1.2 cm LVPW Diastolic Thickness 1.4 cm 0.6 - 1.0 / 0.6 - 0.9 cm LVPW Systolic Thickness 2.0 cm LVOT Diameter 2.0 cm LV Ejection Fraction 2D Teich 62.8 % LV Ejection Fraction MOD 2C 66.0 % LV Ejection Fraction 2C AL 67.6 % LA Diameter 3.5 cm LA Width 3.5 cm LA Height 4.3 cm RA Width 2.6 cm RA Height 4.8 cm Aorta at Sinotubular Diameter 2.6 cm IVC Diameter 1.6 cm M-MODE Aortic Annulus Diameter 2.9 cm LA Ao Ratio MM 1.2 MV E Point Septal Separation 0.7 cm DOPPLER AV Peak Velocity 175.7 cm/s LVOT Peak Velocity 106.0 cm/s AV Area Cont Eq vti 1.9 cm squared AV Area Cont Eq pk 1.9 cm squared MV Peak Velocity 103.0 cm/s MV Area PHT 4.9 cm squared Mitral E to A Ratio 0.7 MV E' Velocity 33.5 cm/s Mitral E to MV E' Ratio 4.8 Mitral E to LV E' Lateral Ratio 5.0 Mitral E to LV E' Septal Ratio 4.5 TR Peak Velocity 214.5 cm/s TR Peak Gradient 18.4 mmHg TR Mean Velocity 171.5 cm/s TR Mean Gradient 12.2 mmHg TR Velocity Time Integral 57.6 cm Right Atrial Pressure 3.0 mmHg Pulmonary Artery Systolic Pressu 21.4 mmHg PV Peak Velocity 116.0 cm/s RV Acceleration Time 0.1 s RV Ejection Time 0.3 s RV AcT/ET 0.5 FINDINGS Left Ventricle Left ventricle is normal in size. LV systolic function is normal with EF of 55 to 60%. No regional wall motion normalities are seen. Grade 1 diastolic dysfunction Right Ventricle Normal in size and function Right Atrium Normal in size Left Atrium Normal in size Mitral Valve Mitral valve is thickened. Mild mitral regurgitation. Aortic Valve Structurally normal aortic valve. Mild aortic regurgitation. Tricuspid Valve Mild tricuspid regurgitation. Pulmonary artery systolic pressure is normal. Pulmonic Valve Not well-visualized. Trace pulmonic regurgitation. Pericardium Normal Aorta Ascending aorta is aneurysmal with diameter of 4.2 cm. IVC Appears to be normal CONCLUSIONS LV systolic function is normal with EF of 55-60% Grade 1 diastolic function Mild mitral regurgitation Mild aortic regurgitation Mild tricuspid regurgitation Trace pulmonic regurgitation Ascending aorta is aneurysmal with diameter of 4.2 cm. Compared to prior echocardiogram from 03/2022, patient now has ascending aorta is aneurysmal Jonathan Blank MD (Electronically Signed) Final Date: 27 June 2022 20:02 S
== END 2022-06-13 09:52 | disposition home or self-care (01) ==
PROVIDERS: PCP Emergency Medicine Emergency Medical Services; Visit Provider Emergency Medicine Emergency Medical Services
DX: I71.21 Aneurysm of the ascending aorta, without rupture (principal)
CPT/HCPCS: 93306

== ENCOUNTER 2022-06-28 08:49 | Outpatient (CLI) | payer OTHER, SELFPAY ==
[2022-06-28 09:22] VITALS: PULSE 81; RESP 18; O2SAT 95
[2022-06-28] MEDS: albuterol 2.5 mg/3 mL Neb INHALATION (09:22)
[2022-06-28 09:27] VITALS: PULSE 79
== END 2022-06-28 08:50 | disposition home or self-care (01) ==
LOC: RT 08:49
PROVIDERS: PCP Emergency Medicine Emergency Medical Services; Visit Provider Internal Medicine Pulmonary Disease
DX: U07.1 COVID-19 (principal); J44.1 Chronic obstructive pulmonary disease with (acute) exacerbation; F17.210 Nicotine dependence, cigarettes, uncomplicated
CPT/HCPCS: 94060; 94618; 94726; 94729; J7613

== ENCOUNTER → 2022-11-30 16:56 | Outpatient (BNVA) | payer OTHER, SELFPAY | PROVIDERS: PCP Emergency Medicine Emergency Medical Services; Visit Provider Internal Medicine Pulmonary Disease | DX: R06.02 Shortness of breath (principal); Z79.899 Other long term (current) drug therapy; F17.210 Nicotine dependence, cigarettes, uncomplicated; Z86.16 Personal history of COVID-19; J98.09 Other diseases of bronchus, not elsewhere classified; J44.9 Chronic obstructive pulmonary disease, unspecified | CPT/HCPCS: 36415; 82785; 86003; 99214 ==

== ENCOUNTER 2023-01-15 09:01 | Outpatient (CLI) | payer OTHER, SELFPAY ==
--- NOTE | 2023-01-15 09:03 | CT_ITS ---
WS: [id number] CTA THORACIC TECHNIQUE: Contrast enhanced CTA of the thoracic aorta with coronal and sagittal reformatted images a nd maximum intensity projection (MIP) images. CLINICAL INFORMATION: FOLLOW UP ON ANEURYSM COMPARISON: CT chest 04/03/2022 DLP: 552.[address] scans at [facility] use at least one of these dose optimization techniques: automated e xposure control; mA and/or kV adjustment per patient size (includes targeted exams where dose is matc hed to clinical indication); or iterative reconstruction. FINDINGS: Stable aneurysmal dilatation ascending thoracic aorta measuring 5.1 cm unchanged. No evidence of prog ression. Normal caliber descending thoracic aorta. Thoracic aortic calcification. Coronary calcificat ion. Proximal main pulmonary arteries are normal. No mediastinal or hilar lymphadenopathy. No axillar y lymphadenopathy. Adrenal glands are normal. Bilateral renal cysts. Celiac and SMA are patent. Normal GE junction. Mild thoracic curve. Mild thoracic kyphosis. Previously described pulmonary opacities have improved c ompared to previous. LEFT lower lobe opacity with cavitation has improved. Improved tree-in-bud infil trates in the LEFT upper lobe. Improved subsegmental atelectasis RIGHT lower lobe. No new suspicious pulmonary parenchymal opacities. IMPRESSION: 1. Stable ascending thoracic aortic aneurysm measuring 5.1 cm. 2. Improved previously described pulmonary opacities. No new suspicious pulmonary parenchymal opacit ies. 3. No mediastinal or hilar lymphadenopathy. 4. No other significant changes compared to previous.
[2023-01-15] MEDS: iohexol 350 mg/mL 500 mL Btl (per mL) IV (09:42)
== END 2023-01-15 09:02 | disposition home or self-care (01) ==
LOC: RAD 09:01
PROVIDERS: PCP Emergency Medicine Emergency Medical Services; Visit Provider Emergency Medicine Emergency Medical Services
DX: I71.21 Aneurysm of the ascending aorta, without rupture (principal)
CPT/HCPCS: 71275; Q9967

== ENCOUNTER → 2023-08-03 10:10 | Outpatient (BNVA) | payer OTHER, SELFPAY | PROVIDERS: PCP Emergency Medicine Emergency Medical Services; Visit Provider Internal Medicine Pulmonary Disease | DX: J44.89 Other specified chronic obstructive pulmonary disease (principal); J98.09 Other diseases of bronchus, not elsewhere classified; U07.1 COVID-19; I71.20 Thoracic aortic aneurysm, without rupture, unspecified; Z87.891 Personal history of nicotine dependence | CPT/HCPCS: 99214 ==

== ENCOUNTER 2024-01-08 12:05 | Outpatient (CLI) | payer OTHER, SELFPAY ==
--- NOTE | 2024-01-08 12:08 | CTR_ITS ---
PROCEDURE INFORMATION: Exam: CTA Chest With Contrast Exam date and time: 01/08/2024 12:46 PM Age: 73 years old Clinical indication: Condition or disease; Other: Thoracic aortic aneurysm; Additional info: 5.1 cm thoracic aortic aneurysm TECHNIQUE: Imaging protocol: Computed tomographic angiography of the chest with contrast. Exam focused on the arteries. 3D rendering (Not supervised by radiologist): MIP and/or 3D reconstructed images were created by the technologist. Radiation optimization: All CT scans at this facility use at least one of these dose optimization techniques: automated exposure control; mA and/or kV adjustment per patient size (includes targeted exams where dose is matched to clinical indication); or iterative reconstruction. Contrast material: OMNI 350; Contrast volume: 100 ml; Contrast route: INTRAVENOUS (IV); COMPARISON: CT angio chest [id number] 01/15/2023 9:32 AM RADIATION DOSE METRICS: Total DLP (mGy-cm): 264.42 FINDINGS: Pulmonary arteries: No pulmonary emboli. Aorta: 5.1 cm ascending aortic aneurysm. There is no aortic dissection. Celiac trunk and mesenteric arteries: Origins of the celiac, SMA and renal arteries are patent. There is moderate disease of the origin of the left renal artery. Other arteries: There is atherosclerotic disease. Lungs: Emphysematous disease. hyperinflated chest consistent with COPD. Pleural spaces: No pleural effusion or pneumothorax noted. Heart: There is no cardiomegaly. There is no pericardial effusion. Lymph nodes: No pathologically enlarged lymph nodes (by short axis size criteria). Bones/joints: No acute osseous abnormality. There is degenerative disease of the spine. Soft tissues: Unremarkable. CT/CT angio chest [id number] IMPRESSION: 1. Stable ascending thoracic aortic aneurysm which measures 5.1 cm. 2. No pulmonary embolism. 3. COPD COMMENTS: The presence of pulmonary emphysema on CT is an independent risk factor for lung cancer. In the absence of a history or active diagnosis of lung cancer, it is recommended that this patient with emphysema be evaluated for enrollment in a low dose CT lung cancer screening program.
[2024-01-08 12:46] LABS: Blood Urea Nitrogen 8 mg/dL (8-23)
[2024-01-08] MEDS: iohexol 350 mg/mL 500 mL Btl (per mL) IV (12:53)
== END 2024-01-08 12:06 | disposition home or self-care (01) ==
LOC: RAD 12:06
PROVIDERS: PCP Family Medicine; Visit Provider Family Medicine
DX: I71.20 Thoracic aortic aneurysm, without rupture, unspecified (principal); J44.9 Chronic obstructive pulmonary disease, unspecified
CPT/HCPCS: 71275; 82565; 84520